=== PATIENT | male | born 1965 | race Caucasian/White ===

== ENCOUNTER 2017-02-27 01:42 | Emergency (ER) | payer MEDICAID ==
[~2017-02-27] VITALS: Ht 167.6 cm; Wt 71.0 kg
[2017-02-27 06:26] VITALS: BP 137/89
== END 2017-02-27 06:42 | disposition home or self-care (01) ==
LOC: ED 01:57
DX: F10.220 Alcohol dependence with intoxication, uncomplicated (principal)
CPT/HCPCS: 99283

== ENCOUNTER 2019-04-23 20:59 | Emergency (ER) | payer MEDICAID ==
[~2019-04-23] VITALS: Ht 167.6 cm; Wt 60.0 kg
[2019-04-23 21:03] VITALS: BP 142/86
--- NOTE | 2019-04-23 21:33 | NUR ---
PT BECAME AGITATED, GIVEN SCRIPT FOR [facility], ESCORTED OUT [facility]
== END 2019-04-23 21:38 ==
LOC: ED 21:32
DX: F10.220 Alcohol dependence with intoxication, uncomplicated (principal); F45.8 Other somatoform disorders
CPT/HCPCS: 99283

== ENCOUNTER 2020-01-14 05:21 | Inpatient (IN) | payer MEDICAID ==
[~2020-01-14] VITALS: Ht 167.6 cm; Wt 71.0 kg
[2020-01-14] VITALS (7 sets, daily range): BP systolic 93–126; BP diastolic 37–70
--- NOTE | 2020-01-14 05:35 | NUR ---
PT BIB [facility] FOR WEAKNESS, STATING HE CANT STAND. PT REPORTS TWO RECENT FALLS, DENIES LOC, HIT BACK OF HEAD DURING FALL, PT ALSO C/O BLOODY URINE, AND DARK STOOLS. PT MENTIONS NEW ONSET INCONTINENCE. PT IS A POOR HISTORIAN, REPORTS ETOH ABUSE, HX OF WITHDRAWL. JAUNDICE SCLERA AND SKIN. PT LOWER EXTREMITIES ARE EDEMATOUS, PT IS HYPOTHERMIA AT THIS TIME. WARMING MEASURES APPLIED, WET CLOTHING REMOVED. PT GROIN IS SWOLLEN AND RASHY. LEFT LEG MORE SWOLLEN THAN RIGHT. PULSES 2+ RADIALLY AND PEDALLY. PT PLACED ON SPO2/BP/ECG MONITORING.
[2020-01-14] MEDS ORDERED: SODIUM CHLORIDE 0.9% 1,000 ML IV ONE (06:00)
[2020-01-14] MEDS ORDERED: SODIUM CHLORIDE FLUSH 10ML SYR IVF ONE (06:00)
[2020-01-14] MEDS ORDERED: NYSTATIN TOPICAL POWDER 15GM TP PRN (06:00)
--- NOTE | 2020-01-14 06:17 | NUR ---
PHARM REQUEST SENT, PT INFORMED WE NEED A UA SAMPLE, PT NAD, NO CHANGE IN CONDITION, WCTM. WAITING FOR TEST RESULTS.
[2020-01-14 06:30] LABS: MEAN CORPUSCULAR HEMOGLOBIN 40.6 pg (27.5-34.5); MEAN CORPUSCULAR HGB CONC 34.2 g/dL (33.2-36.2); MEAN PLATELET VOLUME 7.2 fL (7.4-10.4); PLATELET COUNT 61 x10^3/uL (130-400); RED BLOOD COUNT 2.26 x10^6/uL (4.38-5.82); RED CELL DISTRIBUTION WIDTH 17.4 % (9.4-14.8)
[2020-01-14 06:43] LABS: INTERNATIONAL NORMALIZED RATIO 2.61 (0.93-1.1); PROTHROMBIN TIME 27.4 Seconds (9.6-11.5)
[2020-01-14 06:45] LABS: ALANINE AMINOTRANSFERASE 136 U/L (12-78); ALBUMIN 1.8 g/dL (3.4-5.0); ANION GAP 16 mmol/L (5-15); CHLORIDE 91 mmol/L (98-107); CREATININE 0.74 mg/dL (0.7-1.3)
[2020-01-14 06:48] LABS: ALKALINE PHOSPHATASE 73 U/L (45-117); BILIRUBIN,TOTAL 10.4 mg/dL (0.2-1.0); TOTAL PROTEIN 7.9 g/dL (6.4-8.2)
[2020-01-14 06:58] LABS: MD YES
[2020-01-14 07:00] LABS: LYMPH#(MANUAL) 0.67 x10^3/uL (1-3.4); LYMPHS% (MANUAL) 5 % (22-44); MONOS% (MANUAL) 3 % (2-9); SEG#(MANUAL) 12.24 x10^3/uL (1.8-6.8); SEGS% (MANUAL) 92 % (42-75)
[2020-01-14 07:01] LABS: <PLATELET ESTIMATE> DECREASED; <PLT MORPHOLOGY> NORMAL PLT MORPH; POLYCHROMASIA 1+
--- NOTE | 2020-01-14 07:05 | NUR ---
report to kelly garrett, pt care transferred at this time. NAD, no change in condition.
--- NOTE | 2020-01-14 07:17 | NUR ---
RECEIVED REPORT FROM CIARA PEARSON RN. PT RESTING ON [facility]. ANGELLA. PT ATTEMPTED TO PROVIDE UA SAMPLE W/O SUCCESS.
--- NOTE | 2020-01-14 07:40 | NUR ---
IV INFILTRATED - UNABLE TO COMPLETE CT
[2020-01-14] MEDS ORDERED: DOXYCYCLINE 100 MG in DEXTROSE 5% 250 ML IV ONE (08:00)
[2020-01-14] MEDS ORDERED: CEFTRIAXONE PMX 1GM/50ML 50 ML IV ONE (08:00)
--- NOTE | 2020-01-14 08:09 | NUR ---
NEW PIV INITIATED. LINDA IN CT NOTIFIED PT IS READY. PT CONTINUES TO REFUSE TO URINATE STATING "I CAN'T PEE RIGHT NOW". PT AWARE OS POSSIBLE NEED FOR STRAIGHT CATH IF UNABLE TO URINATE.
--- NOTE | 2020-01-14 08:39 | NUR ---
SPOKE W/ KENNETH FROM CT WHO STATES SHE WILL COME GET PT NOW.
--- NOTE | 2020-01-14 08:48 | NUR ---
PT TO CT IN STABLE CONDITION.
[2020-01-14] MEDS ORDERED: CEFTRIAXONE PMX 1GM/50ML 50 ML ONE (08:50)
[2020-01-14] MEDS ORDERED: OMNIPAQUE 350 MG/ML, 100ML BOTTLE ONE (09:00)
--- NOTE | 2020-01-14 09:06 | NUR ---
PT CONTINUES TO DENY NEED TO PROVIDE UA SAMPLE. PT EDUCATED ON NEED FOR SAMPLE AND STRAIGHT CATH OPTION. PT STATES OKAY TO DO STRAIGHT CATH IF NEEDED.
--- NOTE | 2020-01-14 09:27 | NUR ---
UA COLLECTED VIA STRAIGHT CATH, LABELED AND SENT TO LAB.
--- NOTE | 2020-01-14 09:30 | NUR ---
PT NOTED TO HAVE ELEVATED WBC AND LACTIC ACID 7.5 DISCUSSED W/ ERP DR. WANG WHO STATES BECAUSE PT HAS HYPONATREMIA NO EXTRA FLUID BOLUS FOR PT. PER ERP DID 1L NS AND DOES NOT WANT A SECOND LITER RUN FOR PT REGARDLESS OF LACTIC ACID AT THIS TIME.
[2020-01-14 09:51] LABS: MICROSCOPIC INDICATED
--- NOTE | 2020-01-14 09:55 | NUR ---
SPOKE W/ ERP DR. WANG WHO STATES HE WILL GIVE PT ALBUMIN AND THIS RN CAN THEN GIVE 500 ML NS.
[2020-01-14] MEDS ORDERED: SODIUM CHLORIDE 0.9%, 500ML IVBOLUS ONE ×2 (10:00→11:30)
[2020-01-14] MEDS ORDERED: ALBUMIN HUMAN 25% 100 ML IV ONE ×2 (10:00→11:30)
--- NOTE | 2020-01-14 10:11 | NUR ---
TASK RN: ALBUMIN INFUSION STARTED PER [facility] AT BEDSIDE AT 10:11AM FOR REPEAT LACTATE
--- NOTE | 2020-01-14 11:06 | NUR ---
PT RESTING ON GURNEY. NADN. [place].
--- NOTE | 2020-01-14 11:56 | NUR ---
PT PROVIDED W/ LUNCH TRAY. PT RESTING ON GURVIRDEN. NADN. AWARE OF POC FOR ADMIT.
--- NOTE | 2020-01-14 12:23 | NUR ---
HOSPITAL BED ORDERED FOR PT.
[2020-01-14] MEDS ORDERED: LORazepam 1MG TABLET PO PRN ×3 (13:30)
[2020-01-14] MEDS ORDERED: ONDANSETRON 2MG/ML, 2ML IVPush PRN (13:30)
[2020-01-14] MEDS ORDERED: MEROPENEM 1 GM in SODIUM CHLORIDE 0.9% 100 ML IV SCH (13:30)
[2020-01-14] MEDS ORDERED: LORazepam 0.5MG TABLET PO PRN (13:30)
[2020-01-14] MEDS ORDERED: GUAIFENESIN/DM 200-20MG, 10ML UDC PO PRN (13:30)
[2020-01-14] MEDS ORDERED: ONDANSETRON ODT 4 MG PO PRN (13:30)
[2020-01-14] MEDS ORDERED: THIAMINE 200 MG in SODIUM CHLORIDE 0.9% 50 ML IV ONE (13:30)
[2020-01-14] MEDS ORDERED: LORazepam 2 MG/ML, 1ML IV PRN ×4 (13:30)
[2020-01-14 13:43] LABS: ANION GAP 11 mmol/L (5-15); CALCIUM 8.6 mg/dL (8.5-10.1); CHLORIDE 92 mmol/L (98-107); CREATININE 0.72 mg/dL (0.7-1.3)
--- NOTE | 2020-01-14 13:59 | NUR ---
GRAIN ELEVATOR SUPERINTENDENT: TASK RN AMANDA NOTIFIED OF PT H&H.
--- NOTE | 2020-01-14 14:02 | NUR ---
Received call from labratory for critical hemaglobin of 7.1, and hematocrit of 20.5 Provider made aware (Madi Webber)
--- NOTE | 2020-01-14 14:04 | NUR ---
GUILLERMO MCGEE APRN STATES WILL CONTINUE TO MONITOR H&H AND MAY CONTACT GI.
--- NOTE | 2020-01-14 14:18 | NUR ---
YELLOW SLIP SENT TO PHARMACY FOR MEDS PER MAY.
--- NOTE | 2020-01-14 14:21 | NUR ---
PT PULLED OUT PIV. JONATHAN PATEL AT BEDSIDE ATTEMPTING US GUIDED PIV.
--- NOTE | 2020-01-14 14:32 | NUR ---
PT MOVED TO HOSPITAL BED.
--- NOTE | 2020-01-14 14:40 | NUR ---
TASK RN: PATIENT ACCIDENTILLY PULLED PRIOR PIV OUT. REPLACED WITH NEW 20 GA TO LEFT WRIST MOVED TO HOSPITAL BED MEAL TRAY REMOVED (ATE 25%)
[2020-01-14] MEDS ORDERED: BENZONATATE 100 MG CAPSULE ONE ×2 (14:51)
[2020-01-14] MEDS ORDERED: GUAIFENESIN/DM 200-20MG, 10ML UDC ONE (14:51)
--- NOTE | 2020-01-14 15:13 | NUR ---
PT RESTING IN BED. NADN.
--- NOTE | 2020-01-14 15:15 | NUR ---
TASK RN: THIAMINE/MEROPENEM IV MEDS AFMINISTERED PER [facility] WELL TWO SEPERATE COUGH MEDICINES
[2020-01-14] MEDS ORDERED: OCTREOTIDE 50 MCG/ML, 1ML (0.05MG/ML) IVPush ONE (15:30)
[2020-01-14] MEDS ORDERED: OCTREOTIDE 500 MCG in SODIUM CHLORIDE 0.9% 99 ML IV SCH (15:30)
[2020-01-14] MEDS ORDERED: CEFTRIAXONE PMX 1GM/50ML 50 ML IV SCH (15:30)
[2020-01-14] MEDS ORDERED: SODIUM CHLORIDE 0.9% 1,000 ML IV SCH (15:30)
--- NOTE | 2020-01-14 15:45 | NUR ---
ASSIST WITH MEDICATIONS IN CODE BLUE
--- NOTE | 2020-01-14 15:57 | NUR ---
REPORT GIVEN TO JONATHAN PARMAR. PT AND ALL PERSONAL BELONGINGS MOVED TO T4.
[2020-01-14] MEDS ORDERED: PHYTONADIONE 10 MG in SODIUM CHLORIDE 0.9% 50 ML IV ONE (16:00)
[2020-01-14] MEDS ORDERED: BENZONATATE 100 MG CAPSULE PO SCH (16:00)
[2020-01-14] MEDS ORDERED: SUCCINYLCHOLINE 20 MG/ML, 10ML ONE (16:00)
[2020-01-14] MEDS ORDERED: CALCIUM CHLORIDE 13.6 MEQ/10 ML ONE (16:00)
[2020-01-14] MEDS ORDERED: EPINEPHRINE SYRINGE 0.1 MG/ML, 10ML ONE (16:00)
[2020-01-14] MEDS ORDERED: SODIUM BICARB 8.4%, 50ML SYRINGE ONE (16:00)
[2020-01-14] MEDS ORDERED: ETOMIDATE 20 MG/10 ML ONE (16:00)
[2020-01-14] MEDS ORDERED: CODE BLUE RESPONSE XX ONE (16:00)
[2020-01-14] MEDS ORDERED: MIDAZOLAM 1 MG/ML, 2ML ONE ×2 (16:10→17:16)
[2020-01-14] MEDS ORDERED: MIDAZOLAM 1 MG/ML, 5ML IVPush ONE (16:30)
[2020-01-14] MEDS ORDERED: PROPOFOL 100 ML IV PRN (16:30)
--- NOTE | 2020-01-14 16:30 | NUR ---
BLOOD AND FFP REQUESTED WILL HANG WHEN ABLE
[2020-01-14] MEDS ORDERED: MORPHINE SULFATE 4 MG/ML, 1ML IVPush PRN (17:00)
[2020-01-14] MEDS ORDERED: THIAMINE 100 MG/ML, 2ML IM ONE (17:00)
[2020-01-14] MEDS ORDERED: GLUCAGON 1 MG IM PRN (17:00)
[2020-01-14] MEDS ORDERED: PHARMACY MAY ADJ FOR RENAL FX MC SCH (17:00)
[2020-01-14] MEDS ORDERED: SENNA 176 MG/5 ML ORAL SOL NG PRN (17:00)
[2020-01-14] MEDS ORDERED: LIDOCAINE-MPF 1%, 2ML ENDO PRN (17:00)
[2020-01-14] MEDS ORDERED: ONDANSETRON 2MG/ML, 2ML IV PRN (17:00)
[2020-01-14] MEDS ORDERED: DEXTROSE 50%, 50ML SYRINGE IVPush PRN (17:00)
[2020-01-14] MEDS ORDERED: BISACODYL 10 MG SUPP PR PRN (17:00)
[2020-01-14] MEDS ORDERED: LACTULOSE 20 GM/30 ML UDC NG PRN (17:00)
[2020-01-14] MEDS ORDERED: SENNA/DOCUSATE TABLET NG PRN (17:00)
[2020-01-14] MEDS ORDERED: DEXTROSE 4 GM TAB.CHEW PO PRN (17:00)
[2020-01-14 17:20] LABS: TROPONIN I < 0.015 ng/mL (0.000-0.045)
[2020-01-14] MEDS ORDERED: PANTOPRAZOLE 80 MG in SODIUM CHLORIDE 0.9% 50 ML IV ONE (17:30)
[2020-01-14] MEDS: FENTANYL PF 100 MCG/2ML IVPush PRN (18:06)
[2020-01-14 18:20] LABS: CHLORIDE,URINE RANDOM 93 mmol/L; POTASSIUM,URINE RANDOM 45 mmol/L; SODIUM,URINE RANDOM 15 mmol/L
[2020-01-14 18:32] LABS: AMPHETAMINE SCREEN, URINE Negative (Negative); BARBITURATE SCREEN, URINE Negative (Negative); BENZODIAZEPINE SCREEN, URINE Negative (Negative); CANNABINOID SCREEN, URINE Negative (Negative); COCAINE SCREEN, URINE Negative (Negative); METHADONE SCREEN, URINE Negative (Negative); OPIATE SCREEN, URINE Negative (Negative)
[2020-01-14] MEDS: PANTOPRAZOLE 80 MG in SODIUM CHLORIDE 0.9% 100 ML IV SCH (18:33)
[2020-01-14] MEDS: OCTREOTIDE 1,250 MCG in SODIUM CHLORIDE 0.9% 247.5 ML IV SCH (18:33)
[2020-01-14 18:34] LABS: OSMOLALITY,URINE 631 mOsm/kg (500-850)
[2020-01-14 19:28] LABS: ANION GAP 7 mmol/L (5-15); CALCIUM 9.2 mg/dL (8.5-10.1); CHLORIDE 95 mmol/L (98-107)
[2020-01-14 19:29] LABS: CREATININE 0.68 mg/dL (0.7-1.3)
[2020-01-14 19:36] LABS: AMPHETAMINE SCREEN, URINE Negative (Negative); BARBITURATE SCREEN, URINE Negative (Negative); BENZODIAZEPINE SCREEN, URINE Negative (Negative); CANNABINOID SCREEN, URINE Negative (Negative); COCAINE SCREEN, URINE Negative (Negative); METHADONE SCREEN, URINE Negative (Negative); OPIATE SCREEN, URINE Negative (Negative)
[2020-01-14] MEDS: THIAMINE 100 MG in SODIUM CHLORIDE 0.9% 50 ML IV SCH (20:05)
[2020-01-14] MEDS: METRONIDAZOLE PMX 500MG/100ML 100 ML IV SCH (20:45)
[2020-01-14] MEDS: INSULIN LISPRO 100 UNITS/ML, PEN SQ-INSULIN SCH (21:43)
[2020-01-14] MEDS: SODIUM CHLORIDE FLUSH 10ML SYR IVF SCH (21:44)
[2020-01-14] MEDS: DOXYCYCLINE 100 MG in DEXTROSE 5% 250 ML IV SCH (22:08)
[2020-01-14 23:38] LABS: TROPONIN I 0.102 ng/mL (0.000-0.045)
[2020-01-15] VITALS (8 sets, daily range): BP systolic 92–114; BP diastolic 38–59
[2020-01-15] MEDS: PANTOPRAZOLE 80 MG in SODIUM CHLORIDE 0.9% 100 ML IV SCH ×2 (02:50→14:06)
[2020-01-15] MEDS: MIDAZOLAM HCL 50 MG in SODIUM CHLORIDE 0.9% 40 ML IV PRN ×2 (02:51→18:06)
[2020-01-15] MEDS: METRONIDAZOLE PMX 500MG/100ML 100 ML IV SCH ×4 (02:52→20:26)
[2020-01-15 04:30] LABS: MEAN CORPUSCULAR HEMOGLOBIN 38.6 pg (27.5-34.5); MEAN CORPUSCULAR HGB CONC 34.7 g/dL (33.2-36.2); MEAN PLATELET VOLUME 8.4 fL (7.4-10.4); PLATELET COUNT 66 x10^3/uL (130-400); RED BLOOD COUNT 2.28 x10^6/uL (4.38-5.82); RED CELL DISTRIBUTION WIDTH 22.7 % (9.4-14.8)
[2020-01-15 04:43] LABS: ALBUMIN 1.9 g/dL (3.4-5.0); ANION GAP 4 mmol/L (5-15); CALCIUM 8.7 mg/dL (8.5-10.1); CHLORIDE 97 mmol/L (98-107)
[2020-01-15 04:47] LABS: ALANINE AMINOTRANSFERASE 96 U/L (12-78); ALKALINE PHOSPHATASE 52 U/L (45-117); BILIRUBIN,TOTAL 12.4 mg/dL (0.2-1.0); CREATININE 0.69 mg/dL (0.7-1.3); TOTAL PROTEIN 6.1 g/dL (6.4-8.2)
[2020-01-15 04:56] LABS: MD YES
[2020-01-15 05:00] LABS: BAND#(MANUAL) 0.54 x10^3/uL; BANDS%(MANUAL) 5 % (0-7); EOS#(MANUAL) 0.21 x10^3/uL (0.0-0.4); EOS% (MANUAL) 2 % (1-7); LYMPH#(MANUAL) 1.18 x10^3/uL (1-3.4); LYMPHS% (MANUAL) 11 % (22-44); METAMYELOCYTES# (MANUAL) 0.21 x10^3/uL (0-0); METAMYELOCYTES% (MANUAL) 2 % (0-1); MONOS#(MANUAL) 0.54 x10^3/uL (0.3-2.7); MONOS% (MANUAL) 5 % (2-9); SEG#(MANUAL) 8.03 x10^3/uL (1.8-6.8); SEGS% (MANUAL) 75 % (42-75)
[2020-01-15 05:01] LABS: ANISOCYTOSIS 1+; ECHINOCYTES 1+; POLYCHROMASIA 1+
[2020-01-15 05:02] LABS: <PLATELET ESTIMATE> DECREASED; <PLT MORPHOLOGY> NORMAL PLT MORPH
[2020-01-15] MEDS: INSULIN LISPRO 100 UNITS/ML, PEN SQ-INSULIN SCH ×4 (07:00→22:44)
[2020-01-15] MEDS ORDERED: PANTOPRAZOLE 40 MG IV IV SCH (09:00)
[2020-01-15] MEDS ORDERED: MULTIVITAMINS/MINERALS TABLET PO SCH (09:00)
[2020-01-15] MEDS ORDERED: PANTOPRAZOLE 40 MG IV IVPush SCH (09:00)
[2020-01-15] MEDS ORDERED: LIDOCAINE 1%, 10ML ONE (09:03)
[2020-01-15] MEDS: SODIUM CHLORIDE FLUSH 10ML SYR IVF SCH ×2 (10:31→21:03)
[2020-01-15] MEDS: PHYTONADIONE 10 MG/ML, 1ML SQ SCH (10:44)
[2020-01-15 10:46] LABS: INTERNATIONAL NORMALIZED RATIO 2.29 (0.93-1.1); PROTHROMBIN TIME 24.1 Seconds (9.6-11.5)
[2020-01-15] MEDS: NOREPINEPHRINE 8 MG in SODIUM CHLORIDE 0.9% 242 ML IV PRN ×2 (11:23→18:50)
[2020-01-15] MEDS: CEFTRIAXONE PMX 1GM/50ML 50 ML IV SCH (11:54)
[2020-01-15 12:47] LABS: TROPONIN I 0.031 ng/mL (0.000-0.045)
[2020-01-15] MEDS: DOXYCYCLINE 100 MG in DEXTROSE 5% 250 ML IV SCH ×2 (14:05→22:40)
[2020-01-15] MEDS: THIAMINE 100 MG in SODIUM CHLORIDE 0.9% 50 ML IV SCH (18:05)
[2020-01-15] MEDS: OCTREOTIDE 1,250 MCG in SODIUM CHLORIDE 0.9% 247.5 ML IV SCH (18:06)
[2020-01-16] MEDS: PANTOPRAZOLE 80 MG in SODIUM CHLORIDE 0.9% 100 ML IV SCH (00:09)
[2020-01-16] MEDS: NOREPINEPHRINE 8 MG in SODIUM CHLORIDE 0.9% 242 ML IV PRN ×2 (00:37→14:21)
[2020-01-16] MEDS: METRONIDAZOLE PMX 500MG/100ML 100 ML IV SCH (02:29)
[2020-01-16 03:59] LABS: MEAN CORPUSCULAR HEMOGLOBIN 38.5 pg (27.5-34.5); MEAN CORPUSCULAR HGB CONC 34.8 g/dL (33.2-36.2); MEAN PLATELET VOLUME 7.1 fL (7.4-10.4); PLATELET COUNT 59 x10^3/uL (130-400); RED BLOOD COUNT 2.33 x10^6/uL (4.38-5.82)
[2020-01-16 04:06] VITALS: BP 116/56
[2020-01-16 04:09] LABS: ALANINE AMINOTRANSFERASE 96 U/L (12-78); ALBUMIN 1.9 g/dL (3.4-5.0); ANION GAP 4 mmol/L (5-15); CALCIUM 8.2 mg/dL (8.5-10.1); CHLORIDE 98 mmol/L (98-107)
[2020-01-16 04:11] LABS: ALKALINE PHOSPHATASE 58 U/L (45-117); BILIRUBIN,TOTAL 11.3 mg/dL (0.2-1.0)
[2020-01-16 04:12] LABS: TOTAL PROTEIN 6.3 g/dL (6.4-8.2)
[2020-01-16 04:48] LABS: MD YES
[2020-01-16 04:56] LABS: BAND#(MANUAL) 0.39 x10^3/uL; BANDS%(MANUAL) 3 % (0-7); EOS#(MANUAL) 0.13 x10^3/uL (0.0-0.4); EOS% (MANUAL) 1 % (1-7); LYMPH#(MANUAL) 1.16 x10^3/uL (1-3.4); LYMPHS% (MANUAL) 9 % (22-44); METAMYELOCYTES# (MANUAL) 0.39 x10^3/uL (0-0); METAMYELOCYTES% (MANUAL) 3 % (0-1); MONOS#(MANUAL) 0.39 x10^3/uL (0.3-2.7); MONOS% (MANUAL) 3 % (2-9); MYELOCYTES# (MANUAL) 0.39 x10^3/uL (0-0); MYELOCYTES% (MANUAL) 3 % (0-0); SEG#(MANUAL) 10.06 x10^3/uL (1.8-6.8); SEGS% (MANUAL) 78 % (42-75)
[2020-01-16 04:57] LABS: <PLATELET ESTIMATE> DECREASED; <PLT MORPHOLOGY> NORMAL PLT MORPH; ANISOCYTOSIS 1+; ECHINOCYTES 1+; POLYCHROMASIA 1+
[2020-01-16] MEDS: INSULIN LISPRO 100 UNITS/ML, PEN SQ-INSULIN SCH ×2 (05:00→11:00)
[2020-01-16] MEDS: MIDAZOLAM HCL 50 MG in SODIUM CHLORIDE 0.9% 40 ML IV PRN (05:15)
[2020-01-16] MEDS: PANTOPRAZOLE 40 MG IV IVPush SCH ×2 (08:26→21:51)
[2020-01-16] MEDS: SODIUM CHLORIDE FLUSH 10ML SYR IVF SCH ×2 (08:26→21:51)
[2020-01-16] MEDS: CEFTRIAXONE PMX 1GM/50ML 50 ML IV SCH (08:27)
[2020-01-16] MEDS: PHYTONADIONE 10 MG/ML, 1ML SQ SCH (08:27)
[2020-01-16] MEDS: DOXYCYCLINE 100 MG in DEXTROSE 5% 250 ML IV SCH ×2 (10:27→21:51)
[2020-01-16] MEDS: THIAMINE 100 MG in SODIUM CHLORIDE 0.9% 50 ML IV SCH (18:04)
[2020-01-16] MEDS: FENTANYL PF 100 MCG/2ML IVPush PRN (21:52)
[2020-01-17 04:06] VITALS: BP 103/55
[2020-01-17] MEDS: MIDAZOLAM HCL 50 MG in SODIUM CHLORIDE 0.9% 40 ML IV PRN (04:41)
[2020-01-17] MEDS: NOREPINEPHRINE 8 MG in SODIUM CHLORIDE 0.9% 242 ML IV PRN ×2 (04:42→15:30)
[2020-01-17 05:33] LABS: MEAN CORPUSCULAR HEMOGLOBIN 38.5 pg (27.5-34.5); MEAN CORPUSCULAR HGB CONC 34.1 g/dL (33.2-36.2); MEAN PLATELET VOLUME 7.7 fL (7.4-10.4); PLATELET COUNT 58 x10^3/uL (130-400); RED BLOOD COUNT 2.28 x10^6/uL (4.38-5.82); RED CELL DISTRIBUTION WIDTH 21.3 % (9.4-14.8)
[2020-01-17 06:04] LABS: MD YES
[2020-01-17 06:05] LABS: BAND#(MANUAL) 0.46 x10^3/uL; BANDS%(MANUAL) 3 % (0-7); EOS#(MANUAL) 0.15 x10^3/uL (0.0-0.4); EOS% (MANUAL) 1 % (1-7); LYMPH#(MANUAL) 0.92 x10^3/uL (1-3.4); LYMPHS% (MANUAL) 6 % (22-44); METAMYELOCYTES# (MANUAL) 0.15 x10^3/uL (0-0); METAMYELOCYTES% (MANUAL) 1 % (0-1); MONOS#(MANUAL) 1.84 x10^3/uL (0.3-2.7); MONOS% (MANUAL) 12 % (2-9); MYELOCYTES# (MANUAL) 0.15 x10^3/uL (0-0); MYELOCYTES% (MANUAL) 1 % (0-0); SEG#(MANUAL) 11.63 x10^3/uL (1.8-6.8); SEGS% (MANUAL) 76 % (42-75)
[2020-01-17 06:06] LABS: ANISOCYTOSIS 1+
[2020-01-17 06:07] LABS: POLYCHROMASIA 1+
[2020-01-17 06:08] LABS: <PLATELET ESTIMATE> DECREASED; <PLT MORPHOLOGY> NORMAL PLT MORPH
[2020-01-17 07:27] LABS: ALANINE AMINOTRANSFERASE 90 U/L (12-78); ALBUMIN 1.8 g/dL (3.4-5.0); ANION GAP 3 mmol/L (5-15); CALCIUM 8.2 mg/dL (8.5-10.1); CHLORIDE 100 mmol/L (98-107); CREATININE 0.73 mg/dL (0.7-1.3)
[2020-01-17 07:29] LABS: ALKALINE PHOSPHATASE 60 U/L (45-117); BILIRUBIN,TOTAL 11.3 mg/dL (0.2-1.0)
[2020-01-17] MEDS: PHYTONADIONE 10 MG/ML, 1ML SQ SCH (09:20)
[2020-01-17] MEDS: CEFTRIAXONE PMX 1GM/50ML 50 ML IV SCH (09:21)
[2020-01-17] MEDS: PANTOPRAZOLE 40 MG IV IVPush SCH ×2 (09:21→22:08)
[2020-01-17] MEDS: SODIUM CHLORIDE FLUSH 10ML SYR IVF SCH ×2 (09:21→22:08)
[2020-01-17] MEDS ORDERED: MIDAZOLAM 1 MG/ML, 5ML ONE (10:00)
[2020-01-17] MEDS ORDERED: MIDAZOLAM 1 MG/ML, 5ML IVPush ONE (10:30)
[2020-01-17] MEDS: FENTANYL PF 100 MCG/2ML IVPush PRN ×2 (10:31→14:10)
[2020-01-17] MEDS: METRONIDAZOLE PMX 500MG/100ML 100 ML IV SCH ×2 (10:39→19:31)
[2020-01-17] MEDS: DEXMEDETOMIDINE 200 MCG in SODIUM CHLORIDE 0.9% 48 ML IV PRN ×2 (15:25→19:31)
[2020-01-17] MEDS: THIAMINE 100 MG in SODIUM CHLORIDE 0.9% 50 ML IV SCH (17:10)
[2020-01-18] MEDS: METRONIDAZOLE PMX 500MG/100ML 100 ML IV SCH (03:26)
[2020-01-18] MEDS: NOREPINEPHRINE 8 MG in SODIUM CHLORIDE 0.9% 242 ML IV PRN ×3 (03:27→20:40)
[2020-01-18 04:00] VITALS: BP 94/56
[2020-01-18 04:07] LABS: MEAN CORPUSCULAR HEMOGLOBIN 39.1 pg (27.5-34.5); MEAN PLATELET VOLUME 7.1 fL (7.4-10.4); PLATELET COUNT 57 x10^3/uL (130-400); RED BLOOD COUNT 2.42 x10^6/uL (4.38-5.82); RED CELL DISTRIBUTION WIDTH 22.7 % (9.4-14.8)
[2020-01-18 04:27] LABS: MD YES
[2020-01-18 04:29] LABS: BAND#(MANUAL) 0.16 x10^3/uL; BANDS%(MANUAL) 1 % (0-7); EOS#(MANUAL) 0.16 x10^3/uL (0.0-0.4); EOS% (MANUAL) 1 % (1-7); LYMPH#(MANUAL) 1.63 x10^3/uL (1-3.4); LYMPHS% (MANUAL) 10 % (22-44); METAMYELOCYTES# (MANUAL) 0.16 x10^3/uL (0-0); METAMYELOCYTES% (MANUAL) 1 % (0-1); MONOS#(MANUAL) 1.14 x10^3/uL (0.3-2.7); MONOS% (MANUAL) 7 % (2-9); MYELOCYTES# (MANUAL) 0.33 x10^3/uL (0-0); MYELOCYTES% (MANUAL) 2 % (0-0); SEG#(MANUAL) 12.71 x10^3/uL (1.8-6.8); SEGS% (MANUAL) 78 % (42-75)
[2020-01-18 04:30] LABS: ANISOCYTOSIS 1+; POLYCHROMASIA 1+
[2020-01-18 04:34] LABS: <PLATELET ESTIMATE> DECREASED; <PLT MORPHOLOGY> NORMAL PLT MORPH; BASOPHILLIC STIPPLING 1+
[2020-01-18] MEDS ORDERED: VANCOMYCIN PER PHARMACY MC PRN (07:00)
[2020-01-18] MEDS ORDERED: SODIUM PHOSPHATE 20 MMOL in SODIUM CHLORIDE 0.9% 500 ML IV ONE (07:00)
[2020-01-18] MEDS ORDERED: VANCOMYCIN 2,100 MG in SODIUM CHLORIDE 0.9% 500 ML IV ONE (07:30)
[2020-01-18] MEDS ORDERED: PHARMACOKINETIC MONITORING MC PRN (07:30)
[2020-01-18] MEDS ORDERED: PHARMACOKINETIC CONSULTATION MC ONE (07:30)
[2020-01-18 07:31] LABS: ANION GAP 5 mmol/L (5-15); CALCIUM 8.3 mg/dL (8.5-10.1); CHLORIDE 101 mmol/L (98-107); CREATININE 0.73 mg/dL (0.7-1.3)
[2020-01-18] MEDS: MEROPENEM 1 GM in SODIUM CHLORIDE 0.9% 100 ML IV SCH ×3 (07:31→23:58)
[2020-01-18] MEDS: DEXMEDETOMIDINE 200 MCG in SODIUM CHLORIDE 0.9% 48 ML IV PRN (08:23)
[2020-01-18] MEDS: SODIUM CHLORIDE FLUSH 10ML SYR IVF SCH ×2 (08:32→20:40)
[2020-01-18] MEDS: PANTOPRAZOLE 40 MG IV IVPush SCH ×2 (08:32→20:39)
[2020-01-18] MEDS: PROPOFOL 100 ML IV PRN ×2 (10:16→23:58)
[2020-01-18] MEDS: THIAMINE 100 MG in SODIUM CHLORIDE 0.9% 50 ML IV SCH (18:00)
[2020-01-18] MEDS: FENTANYL PF 100 MCG/2ML IVPush PRN (20:39)
[2020-01-18] MEDS: VANCOMYCIN 1,600 MG in SODIUM CHLORIDE 0.9% 250 ML IV SCH (20:39)
[2020-01-19] MEDS: FENTANYL PF 100 MCG/2ML IVPush PRN (02:20)
[2020-01-19 04:00] VITALS: BP 96/52
[2020-01-19 05:18] LABS: MEAN CORPUSCULAR HEMOGLOBIN 39.3 pg (27.5-34.5); MEAN PLATELET VOLUME 7.4 fL (7.4-10.4); PLATELET COUNT 62 x10^3/uL (130-400); RED BLOOD COUNT 2.27 x10^6/uL (4.38-5.82)
[2020-01-19] MEDS: NOREPINEPHRINE 8 MG in SODIUM CHLORIDE 0.9% 242 ML IV PRN ×2 (05:51→16:56)
[2020-01-19 06:04] LABS: MD YES
[2020-01-19 06:05] LABS: BAND#(MANUAL) 0.37 x10^3/uL; BANDS%(MANUAL) 2 % (0-7); EOS#(MANUAL) 0.37 x10^3/uL (0.0-0.4); EOS% (MANUAL) 2 % (1-7); METAMYELOCYTES# (MANUAL) 0.55 x10^3/uL (0-0); METAMYELOCYTES% (MANUAL) 3 % (0-1); MYELOCYTES# (MANUAL) 0.37 x10^3/uL (0-0); MYELOCYTES% (MANUAL) 2 % (0-0)
[2020-01-19 06:06] LABS: ANISOCYTOSIS 1+; LYMPH#(MANUAL) 1.47 x10^3/uL (1-3.4); LYMPHS% (MANUAL) 8 % (22-44); MONOS#(MANUAL) 2.21 x10^3/uL (0.3-2.7); MONOS% (MANUAL) 12 % (2-9); POLYCHROMASIA 1+; SEG#(MANUAL) 13.06 x10^3/uL (1.8-6.8); SEGS% (MANUAL) 71 % (42-75)
[2020-01-19 06:07] LABS: <PLATELET ESTIMATE> DECREASED; <PLT MORPHOLOGY> NORMAL PLT MORPH
[2020-01-19 08:11] LABS: ANION GAP 8 mmol/L (5-15); CALCIUM 8.3 mg/dL (8.5-10.1); CHLORIDE 111 mmol/L (98-107); CREATININE 0.91 mg/dL (0.7-1.3)
[2020-01-19] MEDS: PROPOFOL 100 ML IV PRN ×2 (09:02→17:54)
[2020-01-19] MEDS: MEROPENEM 1 GM in SODIUM CHLORIDE 0.9% 100 ML IV SCH ×3 (09:14→23:38)
[2020-01-19] MEDS: PANTOPRAZOLE 40 MG IV IVPush SCH ×2 (09:15→21:14)
[2020-01-19] MEDS: SODIUM CHLORIDE FLUSH 10ML SYR IVF SCH ×2 (09:15→21:14)
[2020-01-19] MEDS: VANCOMYCIN 1,600 MG in SODIUM CHLORIDE 0.9% 250 ML IV SCH ×2 (10:01→21:14)
[2020-01-19] MEDS ORDERED: FUROSEMIDE 40 MG/4 ML IV ONE (12:00)
[2020-01-19] MEDS: THIAMINE 100 MG in SODIUM CHLORIDE 0.9% 50 ML IV SCH (20:02)
[2020-01-20] MEDS ORDERED: FUROSEMIDE 40 MG/4 ML IV ONE (00:30)
[2020-01-20] MEDS ORDERED: ALBUMIN HUMAN 25% 50 ML IV ONE (00:30)
[2020-01-20] MEDS: NOREPINEPHRINE 8 MG in SODIUM CHLORIDE 0.9% 242 ML IV PRN ×2 (02:07→16:19)
[2020-01-20 04:00] VITALS: BP 117/62
[2020-01-20 04:21] LABS: MEAN CORPUSCULAR HEMOGLOBIN 39.5 pg (27.5-34.5); MEAN CORPUSCULAR HGB CONC 33.5 g/dL (33.2-36.2); MEAN PLATELET VOLUME 7.6 fL (7.4-10.4); PLATELET COUNT 65 x10^3/uL (130-400); RED BLOOD COUNT 2.31 x10^6/uL (4.38-5.82); RED CELL DISTRIBUTION WIDTH 25.5 % (9.4-14.8)
[2020-01-20] MEDS: PROPOFOL 100 ML IV PRN ×3 (04:42→23:13)
[2020-01-20 05:45] LABS: MD YES
[2020-01-20 05:46] LABS: BAND#(MANUAL) 0.75 x10^3/uL; BANDS%(MANUAL) 4 % (0-7); LYMPH#(MANUAL) 1.13 x10^3/uL (1-3.4); LYMPHS% (MANUAL) 6 % (22-44); METAMYELOCYTES# (MANUAL) 0.94 x10^3/uL (0-0); METAMYELOCYTES% (MANUAL) 5 % (0-1); MONOS#(MANUAL) 2.44 x10^3/uL (0.3-2.7); MONOS% (MANUAL) 13 % (2-9); MYELOCYTES# (MANUAL) 0.19 x10^3/uL (0-0); MYELOCYTES% (MANUAL) 1 % (0-0); SEG#(MANUAL) 13.35 x10^3/uL (1.8-6.8); SEGS% (MANUAL) 71 % (42-75)
[2020-01-20 05:47] LABS: <PLATELET ESTIMATE> DECREASED; <PLT MORPHOLOGY> NORMAL PLT MORPH; ANISOCYTOSIS 1+; POLYCHROMASIA 1+
[2020-01-20] MEDS: SODIUM CHLORIDE FLUSH 10ML SYR IVF SCH ×2 (07:56→21:13)
[2020-01-20] MEDS: MEROPENEM 1 GM in SODIUM CHLORIDE 0.9% 100 ML IV SCH ×3 (07:56→23:13)
[2020-01-20] MEDS: PANTOPRAZOLE 40 MG IV IVPush SCH ×2 (07:56→21:13)
[2020-01-20] MEDS: FUROSEMIDE 20 MG/2 ML IV SCH ×2 (07:56→17:32)
[2020-01-20 08:49] LABS: ANION GAP 5 mmol/L (5-15); CALCIUM 8.7 mg/dL (8.5-10.1); CHLORIDE 106 mmol/L (98-107); CREATININE 1.29 mg/dL (0.7-1.3)
[2020-01-20] MEDS: FENTANYL PF 100 MCG/2ML IVPush PRN (13:00)
[2020-01-21 04:00] VITALS: BP 99/50
[2020-01-21 04:30] LABS: MEAN CORPUSCULAR HEMOGLOBIN 39.4 pg (27.5-34.5); MEAN CORPUSCULAR HGB CONC 33.3 g/dL (33.2-36.2); MEAN PLATELET VOLUME 7.3 fL (7.4-10.4); PLATELET COUNT 62 x10^3/uL (130-400); RED CELL DISTRIBUTION WIDTH 25.3 % (9.4-14.8)
[2020-01-21] MEDS: PROPOFOL 100 ML IV PRN ×2 (04:58→18:19)
[2020-01-21 05:46] LABS: MD YES
[2020-01-21 05:47] LABS: BAND#(MANUAL) 0.56 x10^3/uL; BANDS%(MANUAL) 3 % (0-7); METAMYELOCYTES# (MANUAL) 0.56 x10^3/uL (0-0); METAMYELOCYTES% (MANUAL) 3 % (0-1)
[2020-01-21 05:48] LABS: EOS#(MANUAL) 0.56 x10^3/uL (0.0-0.4); EOS% (MANUAL) 3 % (1-7); LYMPH#(MANUAL) 1.31 x10^3/uL (1-3.4); LYMPHS% (MANUAL) 7 % (22-44); MONOS#(MANUAL) 1.87 x10^3/uL (0.3-2.7); MONOS% (MANUAL) 10 % (2-9); SEG#(MANUAL) 13.84 x10^3/uL (1.8-6.8); SEGS% (MANUAL) 74 % (42-75)
[2020-01-21 05:49] LABS: <PLATELET ESTIMATE> DECREASED; <PLT MORPHOLOGY> NORMAL PLT MORPH; ANISOCYTOSIS 1+; POLYCHROMASIA 1+
[2020-01-21 06:54] LABS: ANION GAP 3 mmol/L (5-15); CALCIUM 8.5 mg/dL (8.5-10.1); CHLORIDE 105 mmol/L (98-107); CREATININE 1.52 mg/dL (0.7-1.3)
[2020-01-21] MEDS: SODIUM CHLORIDE FLUSH 10ML SYR IVF SCH ×2 (08:03→21:32)
[2020-01-21] MEDS: MEROPENEM 1 GM in SODIUM CHLORIDE 0.9% 100 ML IV SCH ×2 (08:03→16:33)
[2020-01-21] MEDS: FUROSEMIDE 20 MG/2 ML IV SCH ×2 (08:03→17:00)
[2020-01-21] MEDS: PANTOPRAZOLE 40 MG IV IVPush SCH ×2 (08:54→21:31)
[2020-01-21] MEDS: ALBUMIN HUMAN 25% 100 ML IV SCH ×2 (08:54→21:31)
[2020-01-21] MEDS: NOREPINEPHRINE 8 MG in SODIUM CHLORIDE 0.9% 242 ML IV PRN (13:44)
[2020-01-21] MEDS ORDERED: LIDOCAINE 1%, 10ML ONE (15:33)
[2020-01-21] MEDS: FENTANYL PF 100 MCG/2ML IVPush PRN (22:06)
[2020-01-22] MEDS: MEROPENEM 1 GM in SODIUM CHLORIDE 0.9% 100 ML IV SCH ×3 (00:34→19:40)
[2020-01-22] MEDS: NOREPINEPHRINE 8 MG in SODIUM CHLORIDE 0.9% 242 ML IV PRN ×2 (03:43→17:07)
[2020-01-22 04:00] VITALS: BP 115/56
[2020-01-22] MEDS: PROPOFOL 100 ML IV PRN ×2 (04:15→15:34)
[2020-01-22 04:46] LABS: MEAN CORPUSCULAR HEMOGLOBIN 39.7 pg (27.5-34.5); MEAN CORPUSCULAR HGB CONC 33.5 g/dL (33.2-36.2); PLATELET COUNT 58 x10^3/uL (130-400); RED BLOOD COUNT 2.26 x10^6/uL (4.38-5.82); RED CELL DISTRIBUTION WIDTH 24.9 % (9.4-14.8)
[2020-01-22 05:56] LABS: MD YES
[2020-01-22 05:57] LABS: BAND#(MANUAL) 0.32 x10^3/uL; BANDS%(MANUAL) 2 % (0-7); BASOS#(MANUAL) 0.16 x10^3/uL (0-0.1); BASOS% (MANUAL) 1 % (0-1); EOS#(MANUAL) 0.81 x10^3/uL (0.0-0.4); EOS% (MANUAL) 5 % (1-7); LYMPHS% (MANUAL) 8 % (22-44); METAMYELOCYTES# (MANUAL) 0.16 x10^3/uL (0-0); METAMYELOCYTES% (MANUAL) 1 % (0-1); MONOS% (MANUAL) 8 % (2-9); SEG#(MANUAL) 12.15 x10^3/uL (1.8-6.8); SEGS% (MANUAL) 75 % (42-75)
[2020-01-22 05:58] LABS: <PLATELET ESTIMATE> DECREASED; <PLT MORPHOLOGY> NORMAL PLT MORPH; ANISOCYTOSIS 1+; POLYCHROMASIA 1+
[2020-01-22 06:57] LABS: ALANINE AMINOTRANSFERASE 53 U/L (12-78); ALBUMIN 2.3 g/dL (3.4-5.0); ANION GAP 6 mmol/L (5-15); CALCIUM 8.5 mg/dL (8.5-10.1); CHLORIDE 106 mmol/L (98-107); CREATININE 1.76 mg/dL (0.7-1.3)
[2020-01-22 06:59] LABS: ALKALINE PHOSPHATASE 111 U/L (45-117); BILIRUBIN,TOTAL 7.6 mg/dL (0.2-1.0); TOTAL PROTEIN 6.9 g/dL (6.4-8.2)
[2020-01-22] MEDS ORDERED: SODIUM POLY SULFONATE UDC 15 GM/60 ML PO ONE (07:30)
[2020-01-22] MEDS: PANTOPRAZOLE 40 MG IV IVPush SCH ×2 (08:39→20:56)
[2020-01-22] MEDS: SODIUM CHLORIDE FLUSH 10ML SYR IVF SCH ×2 (08:40→20:57)
[2020-01-22] MEDS ORDERED: SODIUM BICARB 8.4%, 50ML SYRINGE ONE (17:26)
[2020-01-23] MEDS: PROPOFOL 100 ML IV PRN ×3 (01:40→20:51)
[2020-01-23] MEDS: NOREPINEPHRINE 8 MG in SODIUM CHLORIDE 0.9% 242 ML IV PRN ×2 (02:59→19:43)
[2020-01-23 04:21] LABS: MEAN CORPUSCULAR HEMOGLOBIN 40.2 pg (27.5-34.5); MEAN CORPUSCULAR HGB CONC 33.8 g/dL (33.2-36.2); MEAN PLATELET VOLUME 7.7 fL (7.4-10.4); PLATELET COUNT 61 x10^3/uL (130-400); RED CELL DISTRIBUTION WIDTH 25.6 % (9.4-14.8)
[2020-01-23 04:29] LABS: CHLORIDE 107 mmol/L (98-107)
[2020-01-23 04:35] LABS: ANION GAP 7 mmol/L (5-15); CALCIUM 8.5 mg/dL (8.5-10.1); CREATININE 1.87 mg/dL (0.7-1.3)
[2020-01-23 04:39] LABS: TRIGLYCERIDES 41 mg/dL (50-200)
[2020-01-23 04:48] VITALS: BP 109/56
[2020-01-23 04:56] LABS: MICROSCOPIC INDICATED
[2020-01-23 06:03] LABS: MD YES
[2020-01-23 06:07] LABS: BANDS%(MANUAL) 2 % (0-7); BASOS#(MANUAL) 0.15 x10^3/uL (0-0.1); BASOS% (MANUAL) 1 % (0-1); EOS#(MANUAL) 0.59 x10^3/uL (0.0-0.4); EOS% (MANUAL) 4 % (1-7); LYMPH#(MANUAL) 1.63 x10^3/uL (1-3.4); LYMPHS% (MANUAL) 11 % (22-44); METAMYELOCYTES# (MANUAL) 0.15 x10^3/uL (0-0); METAMYELOCYTES% (MANUAL) 1 % (0-1); MONOS#(MANUAL) 0.74 x10^3/uL (0.3-2.7); MONOS% (MANUAL) 5 % (2-9); SEG#(MANUAL) 11.25 x10^3/uL (1.8-6.8); SEGS% (MANUAL) 76 % (42-75)
[2020-01-23 06:08] LABS: <PLATELET ESTIMATE> DECREASED; <PLT MORPHOLOGY> NORMAL PLT MORPH; ANISOCYTOSIS 1+; PMNS WITH VACUOLES 1+; POLYCHROMASIA 1+
[2020-01-23] MEDS ORDERED: SODIUM POLY SULFONATE UDC 15 GM/60 ML PO ONE (07:00)
[2020-01-23] MEDS: PANTOPRAZOLE 40 MG IV IVPush SCH ×2 (08:04→19:44)
[2020-01-23] MEDS: MEROPENEM 1 GM in SODIUM CHLORIDE 0.9% 100 ML IV SCH ×2 (08:05→19:44)
[2020-01-23] MEDS: SODIUM CHLORIDE FLUSH 10ML SYR IVF SCH ×2 (10:51→19:16)
[2020-01-24] MEDS: PROPOFOL 100 ML IV PRN ×2 (02:11→19:33)
[2020-01-24 04:19] VITALS: BP 100/60
[2020-01-24 04:57] LABS: MEAN CORPUSCULAR HEMOGLOBIN 39.7 pg (27.5-34.5); MEAN CORPUSCULAR HGB CONC 33.7 g/dL (33.2-36.2); MEAN PLATELET VOLUME 8.2 fL (7.4-10.4); PLATELET COUNT 58 x10^3/uL (130-400); RED BLOOD COUNT 2.36 x10^6/uL (4.38-5.82); RED CELL DISTRIBUTION WIDTH 25.8 % (9.4-14.8)
[2020-01-24 04:59] LABS: ANION GAP 6 mmol/L (5-15); CALCIUM 8.4 mg/dL (8.5-10.1); CHLORIDE 107 mmol/L (98-107); CREATININE 1.85 mg/dL (0.7-1.3)
[2020-01-24 05:18] LABS: INTERNATIONAL NORMALIZED RATIO 1.96 (0.93-1.1); PROTHROMBIN TIME 20.6 Seconds (9.6-11.5)
[2020-01-24 06:00] LABS: MD YES
[2020-01-24 06:02] LABS: ANISOCYTOSIS 1+; BAND#(MANUAL) 0.15 x10^3/uL; BANDS%(MANUAL) 1 % (0-7); EOS#(MANUAL) 0.15 x10^3/uL (0.0-0.4); EOS% (MANUAL) 1 % (1-7); LYMPH#(MANUAL) 1.82 x10^3/uL (1-3.4); LYMPHS% (MANUAL) 12 % (22-44); METAMYELOCYTES% (MANUAL) 2 % (0-1); MONOS#(MANUAL) 0.91 x10^3/uL (0.3-2.7); MONOS% (MANUAL) 6 % (2-9); POLYCHROMASIA 1+; SEG#(MANUAL) 11.86 x10^3/uL (1.8-6.8); SEGS% (MANUAL) 78 % (42-75)
[2020-01-24 06:03] LABS: <PLATELET ESTIMATE> DECREASED; <PLT MORPHOLOGY> NORMAL PLT MORPH; TARGET CELLS 1+
[2020-01-24 06:05] LABS: TOXIC GRAN 1+
[2020-01-24] MEDS: PANTOPRAZOLE 40 MG IV IVPush SCH ×2 (09:22→19:33)
[2020-01-24] MEDS: MEROPENEM 1 GM in SODIUM CHLORIDE 0.9% 100 ML IV SCH ×2 (09:22→19:33)
[2020-01-24] MEDS: SODIUM CHLORIDE FLUSH 10ML SYR IVF SCH ×2 (09:22→19:36)
[2020-01-25 04:16] VITALS: BP 100/60
[2020-01-25 05:02] LABS: BASOPHILS % (AUTO) 1 % (0-1); EOSINOPHILS % (AUTO) 3 % (1-7); LYMPHOCYTES % (AUTO) 11 % (22-44); MEAN CORPUSCULAR HEMOGLOBIN 40.5 pg (27.5-34.5); MEAN PLATELET VOLUME 8.5 fL (7.4-10.4); MONOCYTES % (AUTO) 12 % (2-9); NEUTROPHILS % (AUTO) 74 % (42-75); PLATELET COUNT 61 x10^3/uL (130-400); RED BLOOD COUNT 2.26 x10^6/uL (4.38-5.82); RED CELL DISTRIBUTION WIDTH 25.3 % (9.4-14.8)
[2020-01-25 05:53] LABS: MD SCAN
[2020-01-25 06:37] LABS: ALBUMIN 1.7 g/dL (3.4-5.0); ANION GAP 5 mmol/L (5-15); CALCIUM 8.2 mg/dL (8.5-10.1); CHLORIDE 109 mmol/L (98-107)
[2020-01-25 06:42] LABS: ALANINE AMINOTRANSFERASE 49 U/L (12-78); ALKALINE PHOSPHATASE 125 U/L (45-117); BILIRUBIN,TOTAL 7.5 mg/dL (0.2-1.0); CREATININE 2.11 mg/dL (0.7-1.3); TOTAL PROTEIN 7.6 g/dL (6.4-8.2)
[2020-01-25] MEDS: PANTOPRAZOLE 40 MG IV IVPush SCH ×2 (09:32→19:43)
[2020-01-25] MEDS: SODIUM CHLORIDE FLUSH 10ML SYR IVF SCH ×2 (09:32→19:36)
[2020-01-25] MEDS: MIDODRINE 5 MG TABLET PO SCH ×3 (09:33→19:43)
[2020-01-25] MEDS ORDERED: ALBUMIN HUMAN 25% 200 ML IV ONE (10:00)
[2020-01-25] MEDS ORDERED: LIDOCAINE 1%, 10ML ONE (10:34)
[2020-01-25] MEDS: NOREPINEPHRINE 8 MG in SODIUM CHLORIDE 0.9% 242 ML IV PRN (10:52)
[2020-01-25] MEDS: PROPOFOL 100 ML IV PRN (12:18)
[2020-01-26 04:25] VITALS: BP 105/55
[2020-01-26 07:33] LABS: ANION GAP 6 mmol/L (5-15); CALCIUM 8.6 mg/dL (8.5-10.1); CHLORIDE 108 mmol/L (98-107); CREATININE 2.34 mg/dL (0.7-1.3)
[2020-01-26 07:39] LABS: MEAN CORPUSCULAR HEMOGLOBIN 39.8 pg (27.5-34.5); MEAN CORPUSCULAR HGB CONC 33.4 g/dL (33.2-36.2); MEAN PLATELET VOLUME 8.8 fL (7.4-10.4); RED BLOOD COUNT 2.12 x10^6/uL (4.38-5.82); RED CELL DISTRIBUTION WIDTH 24.8 % (9.4-14.8)
[2020-01-26 07:42] LABS: TRIGLYCERIDES 40 mg/dL (50-200)
[2020-01-26 07:50] LABS: PLATELET COUNT 48 x10^3/uL (130-400)
[2020-01-26 07:51] LABS: MD YES
[2020-01-26 07:52] LABS: BAND#(MANUAL) 0.35 x10^3/uL; BANDS%(MANUAL) 3 % (0-7); EOS#(MANUAL) 0.23 x10^3/uL (0.0-0.4); EOS% (MANUAL) 2 % (1-7); LYMPH#(MANUAL) 1.84 x10^3/uL (1-3.4); LYMPHS% (MANUAL) 16 % (22-44); METAMYELOCYTES# (MANUAL) 0.12 x10^3/uL (0-0); METAMYELOCYTES% (MANUAL) 1 % (0-1); MONOS#(MANUAL) 1.27 x10^3/uL (0.3-2.7); MONOS% (MANUAL) 11 % (2-9); SEG#(MANUAL) 7.71 x10^3/uL (1.8-6.8); SEGS% (MANUAL) 67 % (42-75)
[2020-01-26 07:53] LABS: <PLATELET ESTIMATE> DECREASED; <PLT MORPHOLOGY> NORMAL PLT MORPH; ANISOCYTOSIS 1+; TARGET CELLS 1+; TOXIC GRAN 1+
[2020-01-26] MEDS: PANTOPRAZOLE 40 MG IV IVPush SCH ×2 (08:53→22:06)
[2020-01-26] MEDS: SODIUM CHLORIDE FLUSH 10ML SYR IVF SCH ×2 (08:54→22:07)
[2020-01-26] MEDS: NOREPINEPHRINE 8 MG in SODIUM CHLORIDE 0.9% 242 ML IV PRN (09:41)
[2020-01-26] MEDS: MIDODRINE 5 MG TABLET PO SCH ×3 (10:46→22:06)
[2020-01-26] MEDS: ALBUMIN HUMAN 5% 250 ML IV SCH ×3 (14:18→22:05)
[2020-01-27] VITALS (12 sets, daily range): BP systolic 105–129; BP diastolic 51–65
[2020-01-27 04:40] LABS: O2 FLOW 2 L/min
[2020-01-27] MEDS: MIDODRINE 5 MG TABLET PO SCH ×4 (05:24→23:42)
[2020-01-27 08:03] LABS: BASOPHILS % (AUTO) 1 % (0-1); EOSINOPHILS % (AUTO) 2 % (1-7); LYMPHOCYTES % (AUTO) 11 % (22-44); MEAN CORPUSCULAR HEMOGLOBIN 41.9 pg (27.5-34.5); MEAN CORPUSCULAR HGB CONC 34.3 g/dL (33.2-36.2); MEAN PLATELET VOLUME 9.3 fL (7.4-10.4); MONOCYTES % (AUTO) 10 % (2-9); NEUTROPHILS % (AUTO) 76 % (42-75); RED BLOOD COUNT 1.79 x10^6/uL (4.38-5.82); RED CELL DISTRIBUTION WIDTH 24.7 % (9.4-14.8)
[2020-01-27 08:09] LABS: ANION GAP 5 mmol/L (5-15); CALCIUM 8.7 mg/dL (8.5-10.1); CHLORIDE 111 mmol/L (98-107)
[2020-01-27 08:10] LABS: CREATININE 2.51 mg/dL (0.7-1.3)
[2020-01-27 08:32] LABS: PLATELET COUNT 37 x10^3/uL (130-400)
[2020-01-27 08:37] LABS: MD SCAN
[2020-01-27] MEDS: PANTOPRAZOLE 40 MG IV IVPush SCH (09:00)
[2020-01-27] MEDS: SODIUM CHLORIDE FLUSH 10ML SYR IVF SCH ×2 (09:15→21:45)
[2020-01-27] MEDS: ALBUMIN HUMAN 5% 250 ML IV SCH ×3 (09:15→21:45)
--- NOTE | 2020-01-27 10:11 | NUR ---
01/26 TF GOAL: NEPRO @ 50ML/HR
[2020-01-27] MEDS ORDERED: DESMOPRESSIN 4 MCG/ML INJ IVPush ONE (11:00)
[2020-01-27] MEDS ORDERED: ETOMIDATE 20 MG/10 ML ONE (18:47)
[2020-01-27] MEDS ORDERED: PROPOFOL 10 MG/ML, 20ML ONE (18:47)
[2020-01-27] MEDS ORDERED: MIDAZOLAM 1 MG/ML, 5ML ONE (18:47)
[2020-01-27 21:40] LABS: BASOPHILS % (AUTO) 1 % (0-1); EOSINOPHILS % (AUTO) 2 % (1-7); LYMPHOCYTES % (AUTO) 12 % (22-44); MEAN CORPUSCULAR HEMOGLOBIN 40.3 pg (27.5-34.5); MEAN CORPUSCULAR HGB CONC 33.2 g/dL (33.2-36.2); MEAN PLATELET VOLUME 8.6 fL (7.4-10.4); MONOCYTES % (AUTO) 10 % (2-9); NEUTROPHILS % (AUTO) 75 % (42-75); PLATELET COUNT 67 x10^3/uL (130-400); RED BLOOD COUNT 1.65 x10^6/uL (4.38-5.82); RED CELL DISTRIBUTION WIDTH 24.3 % (9.4-14.8)
[2020-01-27 21:52] LABS: INTERNATIONAL NORMALIZED RATIO 1.91 (0.93-1.1); PROTHROMBIN TIME 20.1 Seconds (9.6-11.5)
[2020-01-27 22:07] LABS: MD SCAN
[2020-01-27] MEDS: PANTOPRAZOLE 80 MG in SODIUM CHLORIDE 0.9% 100 ML IV SCH (22:30)
[2020-01-28] VITALS (17 sets, daily range): BP systolic 92–124; BP diastolic 30–66
[2020-01-28 05:16] LABS: BASOPHILS % (AUTO) 0 % (0-1); EOSINOPHILS % (AUTO) 3 % (1-7); LYMPHOCYTES % (AUTO) 12 % (22-44); MEAN CORPUSCULAR HEMOGLOBIN 38.7 pg (27.5-34.5); MEAN CORPUSCULAR HGB CONC 33.6 g/dL (33.2-36.2); MEAN PLATELET VOLUME 8.7 fL (7.4-10.4); MONOCYTES % (AUTO) 11 % (2-9); NEUTROPHILS % (AUTO) 74 % (42-75); PLATELET COUNT 60 x10^3/uL (130-400); RED BLOOD COUNT 1.87 x10^6/uL (4.38-5.82); RED CELL DISTRIBUTION WIDTH 26.8 % (9.4-14.8)
[2020-01-28 05:25] LABS: MD NO
[2020-01-28 05:28] LABS: INTERNATIONAL NORMALIZED RATIO 1.96 (0.93-1.1); PROTHROMBIN TIME 20.6 Seconds (9.6-11.5)
[2020-01-28 05:29] LABS: ANION GAP 8 mmol/L (5-15); CHLORIDE 112 mmol/L (98-107); CREATININE 2.67 mg/dL (0.7-1.3)
[2020-01-28 05:30] LABS: ALANINE AMINOTRANSFERASE 35 U/L (12-78); ALBUMIN 2.7 g/dL (3.4-5.0)
[2020-01-28] MEDS: MIDODRINE 5 MG TABLET PO SCH ×4 (05:30→23:42)
[2020-01-28 05:32] LABS: ALKALINE PHOSPHATASE 49 U/L (45-117); BILIRUBIN,TOTAL 10.9 mg/dL (0.2-1.0); TOTAL PROTEIN 7.1 g/dL (6.4-8.2)
[2020-01-28] MEDS: PANTOPRAZOLE 80 MG in SODIUM CHLORIDE 0.9% 100 ML IV SCH ×2 (06:43→17:32)
[2020-01-28] MEDS: SODIUM CHLORIDE FLUSH 10ML SYR IVF SCH ×2 (09:00→21:20)
[2020-01-28] MEDS: ALBUMIN HUMAN 5% 250 ML IV SCH ×3 (09:06→21:21)
[2020-01-28] MEDS: CEFTRIAXONE PMX 1GM/50ML 50 ML IV SCH (09:06)
[2020-01-28] MEDS: FOLIC ACID 1 MG TABLET PO SCH (09:18)
[2020-01-28] MEDS: GUAIFENESIN 200 MG TABLET PO SCH ×2 (09:18→21:25)
[2020-01-28] MEDS: SODIUM CHLORIDE 0.45% 1,000 ML IV SCH (11:00)
[2020-01-28] MEDS ORDERED: ALBUMIN HUMAN 25% 200 ML IV ONE (11:00)
[2020-01-28] MEDS: LACTULOSE 20 GM/30 ML UDC NG SCH ×2 (13:14→21:24)
[2020-01-28 13:17] LABS: BASOPHILS % (AUTO) 1 % (0-1); EOSINOPHILS % (AUTO) 3 % (1-7); LYMPHOCYTES % (AUTO) 12 % (22-44); MEAN CORPUSCULAR HEMOGLOBIN 39.1 pg (27.5-34.5); MEAN CORPUSCULAR HGB CONC 33.8 g/dL (33.2-36.2); MEAN PLATELET VOLUME 8.4 fL (7.4-10.4); MONOCYTES % (AUTO) 11 % (2-9); NEUTROPHILS % (AUTO) 74 % (42-75); RED BLOOD COUNT 1.56 x10^6/uL (4.38-5.82); RED CELL DISTRIBUTION WIDTH 27.1 % (9.4-14.8)
[2020-01-28] MEDS ORDERED: DESMOPRESSIN 4 MCG/ML INJ IVPush ONE (14:30)
[2020-01-28 14:35] LABS: MD SCAN; PLATELET COUNT 46 x10^3/uL (130-400)
[2020-01-28] MEDS ORDERED: OCTREOTIDE 500 MCG in SODIUM CHLORIDE 0.9% 99 ML IV PRN (15:30)
[2020-01-28] MEDS ORDERED: PANTOPRAZOLE 80 MG in SODIUM CHLORIDE 0.9% 100 ML IV SCH (15:30)
[2020-01-28] MEDS ORDERED: PANTOPRAZOLE 80 MG in SODIUM CHLORIDE 0.9% 50 ML IV ONE (15:30)
[2020-01-28] MEDS ORDERED: LIDOCAINE 1%, 10ML ONE (15:36)
[2020-01-29 03:31] LABS: ALANINE AMINOTRANSFERASE 32 U/L (12-78); ALBUMIN 3.3 g/dL (3.4-5.0); ANION GAP 9 mmol/L (5-15); CALCIUM 9.2 mg/dL (8.5-10.1); CHLORIDE 111 mmol/L (98-107); CREATININE 2.79 mg/dL (0.7-1.3)
[2020-01-29 03:33] LABS: ALKALINE PHOSPHATASE 44 U/L (45-117); BILIRUBIN,TOTAL 13.7 mg/dL (0.2-1.0); TOTAL PROTEIN 7.3 g/dL (6.4-8.2)
[2020-01-29 04:09] LABS: INTERNATIONAL NORMALIZED RATIO 1.91 (0.93-1.1); PROTHROMBIN TIME 20.1 Seconds (9.6-11.5)
[2020-01-29] MEDS: PANTOPRAZOLE 80 MG in SODIUM CHLORIDE 0.9% 100 ML IV SCH (04:18)
[2020-01-29] MEDS: MIDODRINE 5 MG TABLET PO SCH ×4 (05:39→22:58)
[2020-01-29] MEDS: SODIUM CHLORIDE 0.45% 1,000 ML IV SCH ×2 (05:41→17:40)
[2020-01-29] MEDS: FENTANYL PF 100 MCG/2ML IVPush PRN (07:30)
[2020-01-29] MEDS ORDERED: PROPOFOL 100 ML IV PRN (08:00)
[2020-01-29 08:57] LABS: BASOPHILS % (AUTO) 1 % (0-1); EOSINOPHILS % (AUTO) 2 % (1-7); LYMPHOCYTES % (AUTO) 8 % (22-44); MEAN CORPUSCULAR HEMOGLOBIN 35.8 pg (27.5-34.5); MEAN CORPUSCULAR HGB CONC 33.3 g/dL (33.2-36.2); MEAN PLATELET VOLUME 8.7 fL (7.4-10.4); MONOCYTES % (AUTO) 12 % (2-9); NEUTROPHILS % (AUTO) 78 % (42-75); PLATELET COUNT 80 x10^3/uL (130-400); RED BLOOD COUNT 2.11 x10^6/uL (4.38-5.82)
[2020-01-29] MEDS: SODIUM CHLORIDE FLUSH 10ML SYR IVF SCH ×3 (09:00→20:47)
[2020-01-29 09:21] LABS: ANISOCYTOSIS 1+; MD MORPH REVIEW ONLY; TOXIC GRAN 1+
[2020-01-29 09:22] LABS: <PLATELET ESTIMATE> DECREASED; <PLT MORPHOLOGY> NORMAL PLT MORPH; ECHINOCYTES 1+; PMNS WITH VACUOLES 1+
[2020-01-29] MEDS: PANTOPRAZOLE 40 MG IV IVPush SCH ×2 (12:01→22:58)
[2020-01-29] MEDS: LACTULOSE 20 GM/30 ML UDC NG SCH ×2 (12:02→20:46)
[2020-01-29] MEDS: GUAIFENESIN 200 MG TABLET PO SCH ×2 (12:02→20:46)
[2020-01-29] MEDS: FOLIC ACID 1 MG TABLET PO SCH (12:02)
[2020-01-29] MEDS: CEFTRIAXONE PMX 1GM/50ML 50 ML IV SCH (12:05)
[2020-01-29] MEDS ORDERED: GLUCAGON 1 MG IM PRN (13:30)
[2020-01-29] MEDS ORDERED: NOREPINEPHRINE 8 MG in SODIUM CHLORIDE 0.9% 242 ML IV PRN (13:30)
[2020-01-29] MEDS ORDERED: LIDOCAINE-MPF 1%, 2ML ENDO PRN (13:30)
[2020-01-29] MEDS ORDERED: PHARMACY MAY ADJ FOR RENAL FX MC SCH (13:30)
[2020-01-29] MEDS ORDERED: DEXTROSE 4 GM TAB.CHEW PO PRN (13:30)
[2020-01-29] MEDS ORDERED: DEXTROSE 50%, 50ML SYRINGE IVPush PRN (13:30)
[2020-01-29] MEDS ORDERED: ONDANSETRON 2MG/ML, 2ML IV PRN (13:30)
[2020-01-29 14:12] VITALS: BP 110/47
[2020-01-29 14:28] VITALS: BP 104/38
[2020-01-29] MEDS ORDERED: PROPOFOL 10 MG/ML, 50ML ONE (15:06)
[2020-01-29] MEDS ORDERED: PHENYLEPHRINE 10 MG/ML ONE (15:06)
[2020-01-29 16:12] VITALS: BP 116/52
[2020-01-29 17:12] VITALS: BP 114/50
[2020-01-29] MEDS ORDERED: DESMOPRESSIN IVPB ONE (17:30)
[2020-01-29] MEDS ORDERED: SODIUM CHLORIDE 0.9% IVPB ONE (17:30)
[2020-01-30 03:53] LABS: BASOPHILS % (AUTO) 0 % (0-1); EOSINOPHILS % (AUTO) 4 % (1-7); LYMPHOCYTES % (AUTO) 14 % (22-44); MEAN CORPUSCULAR HGB CONC 34.7 g/dL (33.2-36.2); MEAN PLATELET VOLUME 8.6 fL (7.4-10.4); MONOCYTES % (AUTO) 12 % (2-9); NEUTROPHILS % (AUTO) 70 % (42-75); PLATELET COUNT 61 x10^3/uL (130-400); RED BLOOD COUNT 2.14 x10^6/uL (4.38-5.82); RED CELL DISTRIBUTION WIDTH 28.7 % (9.4-14.8)
[2020-01-30 04:05] LABS: ANION GAP 7 mmol/L (5-15); CALCIUM 8.9 mg/dL (8.5-10.1); CHLORIDE 114 mmol/L (98-107); CREATININE 3.06 mg/dL (0.7-1.3)
[2020-01-30] MEDS: MIDODRINE 5 MG TABLET PO SCH ×4 (05:48→23:24)
[2020-01-30 06:11] LABS: MD SCAN
[2020-01-30] MEDS: SODIUM CHLORIDE FLUSH 10ML SYR IVF SCH ×2 (09:00→22:13)
[2020-01-30] MEDS: FOLIC ACID 1 MG TABLET PO SCH (10:04)
[2020-01-30] MEDS: GUAIFENESIN 200 MG TABLET PO SCH ×2 (10:04→22:13)
[2020-01-30] MEDS: LACTULOSE 20 GM/30 ML UDC NG SCH ×2 (10:05→22:13)
[2020-01-30] MEDS: CEFTRIAXONE PMX 1GM/50ML 50 ML IV SCH (10:05)
[2020-01-30] MEDS: PANTOPRAZOLE 40 MG IV IVPush SCH ×2 (11:13→22:14)
[2020-01-30] MEDS: FENTANYL PF 100 MCG/2ML IVPush PRN (22:20)
[2020-01-31] MEDS: MIDODRINE 5 MG TABLET PO SCH ×4 (05:38→19:57)
[2020-01-31 06:18] LABS: BASOPHILS % (AUTO) 1 % (0-1); EOSINOPHILS % (AUTO) 4 % (1-7); LYMPHOCYTES % (AUTO) 13 % (22-44); MEAN CORPUSCULAR HEMOGLOBIN 36.8 pg (27.5-34.5); MEAN CORPUSCULAR HGB CONC 34.2 g/dL (33.2-36.2); MONOCYTES % (AUTO) 12 % (2-9); NEUTROPHILS % (AUTO) 71 % (42-75); PLATELET COUNT 58 x10^3/uL (130-400); RED BLOOD COUNT 2.31 x10^6/uL (4.38-5.82); RED CELL DISTRIBUTION WIDTH 27.7 % (9.4-14.8)
[2020-01-31 06:27] LABS: ANION GAP 7 mmol/L (5-15); CALCIUM 9.3 mg/dL (8.5-10.1); CHLORIDE 116 mmol/L (98-107); CREATININE 3.18 mg/dL (0.7-1.3)
[2020-01-31 06:50] LABS: MD SCAN
[2020-01-31] MEDS: LACTULOSE 20 GM/30 ML UDC NG SCH ×2 (09:07→19:56)
[2020-01-31] MEDS: SODIUM CHLORIDE FLUSH 10ML SYR IVF SCH ×2 (09:08→19:56)
[2020-01-31] MEDS: GUAIFENESIN 200 MG TABLET PO SCH ×2 (09:08→19:56)
[2020-01-31] MEDS: FOLIC ACID 1 MG TABLET PO SCH (09:08)
[2020-01-31] MEDS: CEFTRIAXONE PMX 1GM/50ML 50 ML IV SCH (10:01)
[2020-01-31] MEDS: PANTOPRAZOLE 40 MG IV IVPush SCH ×2 (10:04→19:57)
[2020-02-01 04:35] LABS: BASOPHILS % (AUTO) 0 % (0-1); EOSINOPHILS % (AUTO) 4 % (1-7); LYMPHOCYTES % (AUTO) 11 % (22-44); MEAN CORPUSCULAR HEMOGLOBIN 37.3 pg (27.5-34.5); MEAN CORPUSCULAR HGB CONC 34.7 g/dL (33.2-36.2); MEAN PLATELET VOLUME 10.1 fL (7.4-10.4); MONOCYTES % (AUTO) 12 % (2-9); NEUTROPHILS % (AUTO) 73 % (42-75); RED BLOOD COUNT 2.13 x10^6/uL (4.38-5.82); RED CELL DISTRIBUTION WIDTH 27.1 % (9.4-14.8)
[2020-02-01 05:08] LABS: MD SCAN; PLATELET COUNT 44 x10^3/uL (130-400)
[2020-02-01 05:20] LABS: ANION GAP 9 mmol/L (5-15); CALCIUM 8.9 mg/dL (8.5-10.1); CHLORIDE 118 mmol/L (98-107); CREATININE 3.07 mg/dL (0.7-1.3)
[2020-02-01 05:32] LABS: TRIGLYCERIDES 56 mg/dL (50-200)
[2020-02-01] MEDS: MIDODRINE 5 MG TABLET PO SCH ×4 (05:43→23:21)
[2020-02-01] MEDS: LACTULOSE 20 GM/30 ML UDC NG SCH ×2 (08:46→21:19)
[2020-02-01] MEDS: GUAIFENESIN 200 MG TABLET PO SCH ×2 (08:46→21:19)
[2020-02-01] MEDS: SODIUM CHLORIDE FLUSH 10ML SYR IVF SCH ×2 (08:47→21:18)
[2020-02-01] MEDS: FOLIC ACID 1 MG TABLET PO SCH (08:47)
[2020-02-01] MEDS: PANTOPRAZOLE 40 MG IV IVPush SCH ×2 (11:38→23:21)
[2020-02-02] MEDS: FENTANYL PF 100 MCG/2ML IVPush PRN (03:21)
[2020-02-02 05:44] LABS: BASOPHILS % (AUTO) 1 % (0-1); EOSINOPHILS % (AUTO) 5 % (1-7); LYMPHOCYTES % (AUTO) 11 % (22-44); MEAN CORPUSCULAR HEMOGLOBIN 35.9 pg (27.5-34.5); MEAN CORPUSCULAR HGB CONC 33.4 g/dL (33.2-36.2); MEAN PLATELET VOLUME 8.9 fL (7.4-10.4); MONOCYTES % (AUTO) 11 % (2-9); NEUTROPHILS % (AUTO) 72 % (42-75); PLATELET COUNT 66 x10^3/uL (130-400); RED CELL DISTRIBUTION WIDTH 27.1 % (9.4-14.8)
[2020-02-02 06:00] LABS: CALCIUM 9.4 mg/dL (8.5-10.1); CHLORIDE 120 mmol/L (98-107)
[2020-02-02 06:01] LABS: ANION GAP 5 mmol/L (5-15); CREATININE 2.96 mg/dL (0.7-1.3)
[2020-02-02 06:10] LABS: MD SCAN
[2020-02-02] MEDS: MIDODRINE 5 MG TABLET PO SCH ×4 (06:19→23:46)
[2020-02-02] MEDS: LACTULOSE 20 GM/30 ML UDC NG SCH ×2 (08:44→22:13)
[2020-02-02] MEDS: FOLIC ACID 1 MG TABLET PO SCH (08:45)
[2020-02-02] MEDS: LORazepam 2 MG/ML, 1ML IVPush PRN (08:45)
[2020-02-02] MEDS: SODIUM CHLORIDE FLUSH 10ML SYR IVF SCH ×2 (08:45→22:13)
[2020-02-02] MEDS: GUAIFENESIN 200 MG TABLET PO SCH ×2 (08:45→22:13)
[2020-02-02] MEDS: PANTOPRAZOLE 40 MG IV IVPush SCH ×2 (12:37→22:14)
[2020-02-03 04:55] LABS: BASOPHILS % (AUTO) 1 % (0-1); EOSINOPHILS % (AUTO) 4 % (1-7); LYMPHOCYTES % (AUTO) 11 % (22-44); MEAN CORPUSCULAR HEMOGLOBIN 36.2 pg (27.5-34.5); MEAN CORPUSCULAR HGB CONC 33.7 g/dL (33.2-36.2); MEAN PLATELET VOLUME 8.9 fL (7.4-10.4); MONOCYTES % (AUTO) 10 % (2-9); NEUTROPHILS % (AUTO) 73 % (42-75); PLATELET COUNT 66 x10^3/uL (130-400); RED BLOOD COUNT 2.15 x10^6/uL (4.38-5.82); RED CELL DISTRIBUTION WIDTH 26.9 % (9.4-14.8)
[2020-02-03 04:57] LABS: MD NO
[2020-02-03 05:01] LABS: CHLORIDE 120 mmol/L (98-107)
[2020-02-03 05:06] LABS: ANION GAP 8 mmol/L (5-15); CALCIUM 8.9 mg/dL (8.5-10.1); CREATININE 2.69 mg/dL (0.7-1.3)
[2020-02-03] MEDS: MIDODRINE 5 MG TABLET PO SCH ×4 (05:20→23:04)
[2020-02-03] MEDS ORDERED: POTASSIUM CHLORIDE 10% 20 MEQ/15 ML UDC PO ONE (07:00)
[2020-02-03] MEDS: FOLIC ACID 1 MG TABLET PO SCH (08:54)
[2020-02-03] MEDS: GUAIFENESIN 200 MG TABLET PO SCH ×2 (08:54→20:58)
[2020-02-03] MEDS: LACTULOSE 20 GM/30 ML UDC NG SCH ×2 (08:54→20:58)
[2020-02-03] MEDS: SODIUM CHLORIDE FLUSH 10ML SYR IVF SCH ×2 (08:55→20:59)
[2020-02-03] MEDS ORDERED: BACITRACIN OINT 500U/GM, 28GM TP PRN (11:30)
[2020-02-03] MEDS: PANTOPRAZOLE 40 MG IV IVPush SCH ×2 (11:49→23:07)
[2020-02-04 04:53] VITALS: BP 115/66
[2020-02-04 04:53] LABS: ANION GAP 5 mmol/L (5-15); CALCIUM 8.8 mg/dL (8.5-10.1); CHLORIDE 123 mmol/L (98-107); CREATININE 2.66 mg/dL (0.7-1.3)
[2020-02-04 05:00] LABS: BASOPHILS % (AUTO) 1 % (0-1); EOSINOPHILS % (AUTO) 5 % (1-7); LYMPHOCYTES % (AUTO) 12 % (22-44); MEAN CORPUSCULAR HGB CONC 34.2 g/dL (33.2-36.2); MEAN PLATELET VOLUME 8.8 fL (7.4-10.4); MONOCYTES % (AUTO) 13 % (2-9); NEUTROPHILS % (AUTO) 70 % (42-75); PLATELET COUNT 70 x10^3/uL (130-400); RED BLOOD COUNT 2.16 x10^6/uL (4.38-5.82)
[2020-02-04 05:12] LABS: MD NO
[2020-02-04] MEDS: MIDODRINE 5 MG TABLET PO SCH ×4 (05:16→23:33)
[2020-02-04] MEDS: SODIUM CHLORIDE FLUSH 10ML SYR IVF SCH ×2 (07:57→21:22)
[2020-02-04] MEDS: LACTULOSE 20 GM/30 ML UDC NG SCH ×2 (11:43→21:22)
[2020-02-04] MEDS: FOLIC ACID 1 MG TABLET PO SCH (11:43)
[2020-02-04] MEDS: PANTOPRAZOLE 40 MG IV IVPush SCH ×2 (11:44→23:33)
[2020-02-04] MEDS: GUAIFENESIN 200 MG TABLET PO SCH ×2 (11:44→21:22)
[2020-02-04 20:05] VITALS: BP 122/73
[2020-02-05 01:44] VITALS: BP 113/58
[2020-02-05] MEDS: MIDODRINE 5 MG TABLET PO SCH ×4 (05:30→20:59)
[2020-02-05 05:44] LABS: CHLORIDE 126 mmol/L (98-107)
[2020-02-05 05:53] LABS: ANION GAP 7 mmol/L (5-15); CALCIUM 9.4 mg/dL (8.5-10.1); CREATININE 2.88 mg/dL (0.7-1.3)
[2020-02-05 05:55] VITALS: BP 124/70
[2020-02-05 06:46] LABS: MEAN CORPUSCULAR HEMOGLOBIN 36.6 pg (27.5-34.5); MEAN CORPUSCULAR HGB CONC 33.1 g/dL (33.2-36.2); MEAN PLATELET VOLUME 9.2 fL (7.4-10.4); PLATELET COUNT 58 x10^3/uL (130-400); RED BLOOD COUNT 2.31 x10^6/uL (4.38-5.82); RED CELL DISTRIBUTION WIDTH 27.2 % (9.4-14.8)
[2020-02-05 07:20] VITALS: BP 120/67
[2020-02-05 07:54] LABS: MD YES
[2020-02-05 07:57] LABS: BAND#(MANUAL) 0.34 x10^3/uL; BANDS%(MANUAL) 3 % (0-7); BASOS#(MANUAL) 0.34 x10^3/uL (0-0.1); BASOS% (MANUAL) 3 % (0-1); EOS#(MANUAL) 0.23 x10^3/uL (0.0-0.4); EOS% (MANUAL) 2 % (1-7); LYMPHS% (MANUAL) 8 % (22-44); METAMYELOCYTES# (MANUAL) 0.11 x10^3/uL (0-0); METAMYELOCYTES% (MANUAL) 1 % (0-1); MONOS% (MANUAL) 8 % (2-9); SEG#(MANUAL) 8.48 x10^3/uL (1.8-6.8); SEGS% (MANUAL) 75 % (42-75)
[2020-02-05 08:03] LABS: ANISOCYTOSIS 1+; TARGET CELLS 2+
[2020-02-05 08:04] LABS: <PLATELET ESTIMATE> DECREASED; <PLT MORPHOLOGY> NORMAL PLT MORPH
[2020-02-05] MEDS: LACTULOSE 20 GM/30 ML UDC NG SCH ×2 (08:30→20:57)
[2020-02-05] MEDS: GUAIFENESIN 200 MG TABLET PO SCH ×2 (08:31→20:58)
[2020-02-05] MEDS: FOLIC ACID 1 MG TABLET PO SCH (08:31)
[2020-02-05] MEDS: PHYTONADIONE 5 MG TABLET PO SCH (09:00)
[2020-02-05] MEDS: LACTOBACILLUS CHEW TABLET PO SCH ×3 (09:00→20:58)
[2020-02-05] MEDS: SODIUM CHLORIDE FLUSH 10ML SYR IVF SCH ×2 (09:00→20:57)
[2020-02-05] MEDS: PANTOPRAZOLE 40 MG IV IVPush SCH ×2 (12:43→22:21)
[2020-02-05] MEDS ORDERED: SODIUM CHLORIDE 0.45% 1,000 ML IV SCH (13:00)
[2020-02-05] MEDS: ACETYLCYSTEINE 600 MG CAPSULE PO SCH (20:58)
[2020-02-05 21:11] VITALS: BP 119/60
[2020-02-06] MEDS: MIDODRINE 5 MG TABLET PO SCH ×4 (05:06→21:37)
[2020-02-06 05:40] LABS: BASOPHILS % (AUTO) 1 % (0-1); EOSINOPHILS % (AUTO) 4 % (1-7); LYMPHOCYTES % (AUTO) 17 % (22-44); MEAN CORPUSCULAR HEMOGLOBIN 37.3 pg (27.5-34.5); MEAN CORPUSCULAR HGB CONC 33.5 g/dL (33.2-36.2); MEAN PLATELET VOLUME 8.8 fL (7.4-10.4); MONOCYTES % (AUTO) 13 % (2-9); NEUTROPHILS % (AUTO) 66 % (42-75); PLATELET COUNT 73 x10^3/uL (130-400); RED BLOOD COUNT 2.16 x10^6/uL (4.38-5.82)
[2020-02-06 05:49] LABS: % IRON SATURATION 62 % (20-55); ANION GAP 5 mmol/L (5-15); CALCIUM 9.4 mg/dL (8.5-10.1); CHLORIDE 129 mmol/L (98-107); CREATININE 2.82 mg/dL (0.7-1.3); IRON LEVEL 65 mcg/dL (65-175); TOTAL IRON BINDING CAPACITY 105 mcg/dL (250-450)
[2020-02-06 06:43] LABS: MD SCAN
[2020-02-06 07:32] VITALS: BP 101/51
[2020-02-06] MEDS: GUAIFENESIN 200 MG TABLET PO SCH ×2 (09:00→21:00)
[2020-02-06] MEDS: PHYTONADIONE 5 MG TABLET PO SCH (09:00)
[2020-02-06] MEDS: FOLIC ACID 1 MG TABLET PO SCH (09:00)
[2020-02-06] MEDS: ACETYLCYSTEINE 600 MG CAPSULE PO SCH ×2 (09:00→21:00)
[2020-02-06] MEDS: LACTOBACILLUS CHEW TABLET PO SCH ×3 (09:00→21:00)
[2020-02-06] MEDS: LACTULOSE 20 GM/30 ML UDC NG SCH ×2 (09:00→21:00)
[2020-02-06] MEDS: POTASSIUM CHLORIDE 10 MEQ in DEXTROSE 5% 1,000 ML IV SCH (10:57)
[2020-02-06] MEDS: SODIUM CHLORIDE FLUSH 10ML SYR IVF SCH ×2 (10:57→21:00)
[2020-02-06] MEDS: PANTOPRAZOLE 40 MG IV IVPush SCH ×2 (12:07→21:49)
[2020-02-06 12:16] VITALS: BP 108/58
[2020-02-06 18:59] VITALS: BP 104/58
[2020-02-07] VITALS (7 sets, daily range): BP systolic 90–111; BP diastolic 33–64
[2020-02-07] MEDS: MIDODRINE 5 MG TABLET PO SCH (04:37)
[2020-02-07] MEDS: POTASSIUM CHLORIDE 10 MEQ in DEXTROSE 5% 1,000 ML IV SCH (05:05)
[2020-02-07 05:47] LABS: BASOPHILS % (AUTO) 1 % (0-1); EOSINOPHILS % (AUTO) 5 % (1-7); LYMPHOCYTES % (AUTO) 18 % (22-44); MEAN CORPUSCULAR HEMOGLOBIN 37.2 pg (27.5-34.5); MEAN CORPUSCULAR HGB CONC 33.5 g/dL (33.2-36.2); MEAN PLATELET VOLUME 9.3 fL (7.4-10.4); MONOCYTES % (AUTO) 12 % (2-9); NEUTROPHILS % (AUTO) 65 % (42-75); PLATELET COUNT 82 x10^3/uL (130-400); RED BLOOD COUNT 2.02 x10^6/uL (4.38-5.82); RED CELL DISTRIBUTION WIDTH 27.1 % (9.4-14.8)
[2020-02-07 05:53] LABS: ANION GAP 6 mmol/L (5-15); CALCIUM 9.3 mg/dL (8.5-10.1); CHLORIDE 129 mmol/L (98-107); CREATININE 2.94 mg/dL (0.7-1.3)
[2020-02-07 06:58] LABS: MD SCAN
[2020-02-07 07:41] LABS: INTERNATIONAL NORMALIZED RATIO 2.17 (0.93-1.1); PROTHROMBIN TIME 22.8 Seconds (9.6-11.5)
[2020-02-07] MEDS ORDERED: PHYTONADIONE 5 MG TABLET PO SCH (09:00)
[2020-02-07] MEDS: SODIUM CHLORIDE FLUSH 10ML SYR IVF SCH ×2 (10:07→21:23)
[2020-02-07] MEDS: FOLIC ACID 1 MG TABLET PO SCH (10:08)
[2020-02-07] MEDS: LACTOBACILLUS CHEW TABLET PO SCH (10:08)
[2020-02-07] MEDS: LACTULOSE 20 GM/30 ML UDC NG SCH (10:08)
[2020-02-07] MEDS: GUAIFENESIN 200 MG TABLET PO SCH (10:08)
[2020-02-07] MEDS: ACETYLCYSTEINE 600 MG CAPSULE PO SCH (10:09)
[2020-02-07] MEDS ORDERED: LIDOCAINE 1%, 10ML ONE (12:05)
[2020-02-07] MEDS: PANTOPRAZOLE 40 MG IV IVPush SCH (12:45)
[2020-02-07] MEDS: PHYTONADIONE 10 MG/ML, 1ML IM SCH (12:47)
[2020-02-07] MEDS ORDERED: ALBUMIN HUMAN 25% 100 ML IV ONE (16:00)
[2020-02-07] MEDS ORDERED: CARVEDILOL 3.125 MG TABLET PO SCH (21:00)
[2020-02-08] VITALS (7 sets, daily range): BP systolic 93–113; BP diastolic 46–62
[2020-02-08] MEDS: PANTOPRAZOLE 40 MG IV IVPush SCH ×2 (00:49→11:58)
[2020-02-08] MEDS: POTASSIUM CHLORIDE 10 MEQ in DEXTROSE 5% 1,000 ML IV SCH ×3 (01:46→23:06)
[2020-02-08 09:08] LABS: ANION GAP 6 mmol/L (5-15); CALCIUM 9.3 mg/dL (8.5-10.1); CHLORIDE 130 mmol/L (98-107); CREATININE 2.88 mg/dL (0.7-1.3)
[2020-02-08] MEDS: PHYTONADIONE 10 MG/ML, 1ML IM SCH (10:24)
[2020-02-08] MEDS: SODIUM CHLORIDE FLUSH 10ML SYR IVF SCH ×2 (10:25→21:00)
[2020-02-08] MEDS: LORazepam 2 MG/ML, 1ML IVPush PRN ×2 (11:58→22:16)
[2020-02-09 02:00] VITALS: BP 118/59
[2020-02-09] MEDS: LORazepam 2 MG/ML, 1ML IVPush PRN ×3 (02:26→15:57)
[2020-02-09 07:59] LABS: BASOPHILS % (AUTO) 1 % (0-1); EOSINOPHILS % (AUTO) 4 % (1-7); LYMPHOCYTES % (AUTO) 16 % (22-44); MEAN CORPUSCULAR HEMOGLOBIN 37.1 pg (27.5-34.5); MEAN PLATELET VOLUME 8.8 fL (7.4-10.4); MONOCYTES % (AUTO) 11 % (2-9); NEUTROPHILS % (AUTO) 68 % (42-75); PLATELET COUNT 75 x10^3/uL (130-400); RED BLOOD COUNT 2.05 x10^6/uL (4.38-5.82); RED CELL DISTRIBUTION WIDTH 27.1 % (9.4-14.8)
[2020-02-09 08:04] LABS: MD NO
[2020-02-09 08:08] LABS: CALCIUM 9.3 mg/dL (8.5-10.1); CREATININE 2.91 mg/dL (0.7-1.3)
[2020-02-09] MEDS: PHYTONADIONE 10 MG/ML, 1ML IM SCH (08:15)
[2020-02-09 08:16] VITALS: BP 124/74
[2020-02-09] MEDS: SODIUM CHLORIDE FLUSH 10ML SYR IVF SCH ×2 (08:16→23:49)
[2020-02-09 08:18] LABS: ANION GAP 5 mmol/L (5-15); CHLORIDE 130 mmol/L (98-107)
[2020-02-09 08:20] LABS: INTERNATIONAL NORMALIZED RATIO 2.14 (0.93-1.1); PROTHROMBIN TIME 22.5 Seconds (9.6-11.5)
[2020-02-09] MEDS: PANTOPRAZOLE 40 MG IV IVPush SCH ×3 (12:09→23:57)
[2020-02-09 12:32] VITALS: BP 112/63
[2020-02-09] MEDS: MORPHINE SULFATE 4 MG/ML, 1ML IVPush PRN ×2 (18:46→23:58)
[2020-02-09 19:45] VITALS: BP 121/74
[2020-02-10] MEDS: POTASSIUM CHLORIDE 10 MEQ in DEXTROSE 5% 1,000 ML IV SCH ×2 (01:23→22:46)
[2020-02-10 01:26] VITALS: BP 120/57
[2020-02-10] MEDS: LORazepam 2 MG/ML, 1ML IVPush PRN ×3 (03:03→23:17)
[2020-02-10 07:36] VITALS: BP 103/59
[2020-02-10] MEDS: PHYTONADIONE 10 MG/ML, 1ML IM SCH (09:00)
[2020-02-10] MEDS: MORPHINE SULFATE 4 MG/ML, 1ML IVPush PRN ×3 (09:53→22:19)
[2020-02-10] MEDS: SODIUM CHLORIDE FLUSH 10ML SYR IVF SCH ×2 (09:53→21:56)
[2020-02-10] MEDS: PANTOPRAZOLE 40 MG IV IVPush SCH ×2 (12:51→22:38)
[2020-02-10 13:14] VITALS: BP 109/64
[2020-02-11 06:06] VITALS: BP 101/54
== END 2020-02-11 09:36 | disposition expired | DRG 870 ==
LOC: ED 06:41 → EDIP 13:20 → CCU 17:27 → 4EST 02-04 17:57
PROVIDERS: ADMIT Internal Medicine; ATTEND Internal Medicine
PROC: 5A1955Z Respiratory Ventilation, Greater than 96 Consecutive Hours (ICD-10-PCS; principal; 2020-01-14)
PROC: 0BH17EZ Insertion of Endotracheal Airway into Trachea, Via Natural or Artificial Opening (ICD-10-PCS; 2020-01-14)
PROC: 30233K1 Transfusion of Nonautologous Frozen Plasma into Peripheral Vein, Percutaneous Approach (ICD-10-PCS; 2020-01-14)
PROC: 30233N1 Transfusion of Nonautologous Red Blood Cells into Peripheral Vein, Percutaneous Approach (ICD-10-PCS; 2020-01-14)
PROC: 5A12012 Performance of Cardiac Output, Single, Manual (ICD-10-PCS; 2020-01-14)
PROC: 0W9G3ZZ Drainage of Peritoneal Cavity, Percutaneous Approach (ICD-10-PCS; 2020-01-15)
PROC: 02H633Z Insertion of Infusion Device into Right Atrium, Percutaneous Approach (ICD-10-PCS; 2020-01-15)
PROC: B548ZZA Ultrasonography of Superior Vena Cava, Guidance (ICD-10-PCS; 2020-01-15)
PROC: 0B9B8ZZ Drainage of Left Lower Lobe Bronchus, Via Natural or Artificial Opening Endoscopic (ICD-10-PCS; 2020-01-17)
PROC: 0B988ZZ Drainage of Left Upper Lobe Bronchus, Via Natural or Artificial Opening Endoscopic (ICD-10-PCS; 2020-01-17)
PROC: 0B968ZZ Drainage of Right Lower Lobe Bronchus, Via Natural or Artificial Opening Endoscopic (ICD-10-PCS; 2020-01-17)
PROC: 0DJ08ZZ Inspection of Upper Intestinal Tract, Via Natural or Artificial Opening Endoscopic (ICD-10-PCS; 2020-01-17)
PROC: 0W9G3ZZ Drainage of Peritoneal Cavity, Percutaneous Approach (ICD-10-PCS; 2020-01-21)
PROC: 0T9B70Z Drainage of Bladder with Drainage Device, Via Natural or Artificial Opening (ICD-10-PCS; 2020-01-23)
DX: A41.9 Sepsis, unspecified organism (principal); E43 Unspecified severe protein-calorie malnutrition; G93.41 Metabolic encephalopathy; J69.0 Pneumonitis due to inhalation of food and vomit; J96.01 Acute respiratory failure with hypoxia; K85.90 Acute pancreatitis without necrosis or infection, unspecified; N17.0 Acute kidney failure with tubular necrosis; I62.00 Nontraumatic subdural hemorrhage, unspecified; D62 Acute posthemorrhagic anemia; D68.4 Acquired coagulation factor deficiency; E87.1 Hypo-osmolality and hyponatremia; E87.2 Acidosis; I85.10 Secondary esophageal varices without bleeding; J91.8 Pleural effusion in other conditions classified elsewhere; J94.8 Other specified pleural conditions; Z99.11 Dependence on respirator [ventilator] status; E87.0 Hyperosmolality and hypernatremia; K76.6 Portal hypertension; Z66 Do not resuscitate; I46.9 Cardiac arrest, cause unspecified; R57.8 Other shock; Z20.828 Contact with and (suspected) exposure to other viral communicable diseases; B35.6 Tinea cruris; D53.9 Nutritional anemia, unspecified; D69.6 Thrombocytopenia, unspecified; E86.1 Hypovolemia; E87.5 Hyperkalemia; E87.70 Fluid overload, unspecified; F17.210 Nicotine dependence, cigarettes, uncomplicated; K29.80 Duodenitis without bleeding; K31.89 Other diseases of stomach and duodenum; K70.11 Alcoholic hepatitis with ascites; K70.31 Alcoholic cirrhosis of liver with ascites; R13.10 Dysphagia, unspecified; K72.90 Hepatic failure, unspecified without coma; Y90.1 Blood alcohol level of 20-39 mg/100 ml; R68.0 Hypothermia, not associated with low environmental temperature; N62 Hypertrophy of breast; R65.20 Severe sepsis without septic shock; F10.20 Alcohol dependence, uncomplicated; Z91.19 Patient's noncompliance with other medical treatment and regimen; Z59.0 Homelessness; Z68.35 Body mass index [BMI] 35.0-35.9, adult; Z88.0 Allergy status to penicillin; Z79.899 Other long term (current) drug therapy; Z88.1 Allergy status to other antibiotic agents
CPT/HCPCS: 31500; 31622; 36415; 36573; 36600; 49083; 70551; 71045; 71260; 74018; 74177; 74230; 74340; 80048; 80053; 80074; 80307; 81001; 82042; 82140; 82436; 82533; 82570; 82607; 82803; 82805; 82962; 83540; 83550; 83605; 83690; 83735; 83935; 84100; 84133; 84145; 84157; 84295; 84300; 84478; 84484; 85014; 85018; 85025; 85610; 85730; 86480; 86850; 86900; 86923; 87040; 87046; 87070; 87081; 87086; 87177; 87205; 87209; 87427; 87635; 88112; 88305; 89051; 92950; 93005; 93306; 93356; 94002; 94003; 96365; 99291; G0378; J0696; J1940; J2185; J2250; J2354; J2597; J2704; J3010; J3370; J3411; J3430; J3480; J7060; J7070; P9041; P9047; Q9967; C1751; C9113; J0330; J2060; J2270; J2370; J7030; J7040; J7050; P9016; P9017; P9035; P9045